=== PATIENT | female | born 1945 | race Caucasian/White ===

== ENCOUNTER 2025-03-05 19:33 | Inpatient (IN) | payer OTHER, MEDICARE, SELFPAY ==
[2025-03-05 20:00] VITALS: BP 164/58; PULSE 84; RESP 17; TEMP 37.1; O2SAT 96
--- NOTE | 2025-03-06 03:35 | PC.ADMIT ---
Raine Abdi is a 79years old female with PMHx of Alzheimer's Dementia who presented from [facility] after presenting there from her memory care unit due to continued aggressive behaviors, and psychiatry was consulted for safety and evaluation. According to report, her behavior in the memory care unit is not sustainable and appears to place her and patients at risk. she is unable to care for self and gets aggressive when staff tries to intervene. In addition, pt has significant aphasia which explains some but not all of her behaviors. pt also recently had UIT that is being treated with antibiotics. 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 pt is alert and oriented to self only, on a 12B. pt was unable to complete the admission process due to cognitive decline and declined to sign XIANG's. pt is pleasant but does have an irritable edge and resistive to care when staff tried to obtain vitals and change hospital gown. This nurse was unable to complete assessment questions due to her confusion. pt with a euthymic affect, thought process is disorganized, likely due to the aphasia. pt ambulates independently with steady gait, pt does not appear to be in any pain or distress. VSS unremarkable. No visible skin issues noticed, med rec completed. pt's belongings inventoried/secured.Hospitalist consult ordered for medical clearance.pt has multiple allergies and is placed on 5mins safety checks.
--- NOTE | 2025-03-06 08:29 | P.CONHOSP_ITS ---
History of Present Illness Data of Consult Service Date: 03/06/25 Primary Care Provider: Kelly Rangel HPI Reason for consult: Admission H&P Pt is a 79-year-old female with a PMH significant for?HLD and dementia with aphasia who is admitted to [facility] for aggressive behaviors in the setting of worsening dementia. Pt was previously at a memory care [place] but had been getting increasingly unable to take care of herself and would become aggressive towards staff when they would try and assist her. Medical consult for admission H&P. ?Pt seen and examined on the unit where she is calm, cooperative, and follows commands. However, pt has significant aphasia and often will not answer appropriately and speaks nonsensically. Pt does not appear in any acute distress and does not appear to have any acute medical complaints, but medical hx and HPI difficult to assess. Review of Systems Review of Systems: Yes Unobtainable due to mental status [facility] Medical History (Updated 03/06/25 @ 09:58 by YVETTE Resendez) Dementia HLD (hyperlipidemia) Social History Patient Tobacco Use Status: Refuse Tobacco use screen Advance Directives: No Advance Directives Information Provided: No Advance Directives on File: No Patient : No Meds Allergies Allergy/AdvReac Type Severity Reaction Status Date / Time Cephalosporins Allergy Intermediate Hives Verified 03/05/25 19:23 aspirin Allergy Unknown Verified 03/05/25 19:23 benzocaine Allergy Unknown Verified 03/05/25 19:23 rosuvastatin Allergy Unknown Verified 03/05/25 19:24 codeine AdvReac Intermediate altered Verified 03/05/25 19:23 Mental Status lactose AdvReac intolerance Verified 03/05/25 19:24 chickpeas Allergy Intermediate Hives Uncoded 03/05/25 19:23 Active Medications: Current Medications Acetaminophen (Acetaminophen 325 Mg Tablet) 650 mg PO Q6H PRN PRN Reason: Headache/Pain, Scale 1-10 Al Hydroxide/Mg Hydroxide (Magnesium Hydrox/Alum Hydrox 30 Ml Oral.Susp) 30 ml PO Q6H PRN PRN Reason: Heartburn/Nausea Atorvastatin Calcium (Atorvastatin Calcium 20 Mg Tablet) 20 mg PO DAILY [facility] Donepezil HCl (Donepezil Hcl 5 Mg Tablet) 5 mg PO BEDTIME [facility] Last Admin: 03/05/25 23:20 Dose: 5 mg Escitalopram Oxalate (Escitalopram Oxalate 10 Mg Tablet) 10 mg PO DAILY [facility] Melatonin (Melatonin 3 Mg Tablet) 3 mg PO BEDTIME [facility] Last Admin: 03/05/25 23:19 Dose: 3 mg Olanzapine (Olanzapine 2.5 Mg Tablet) 2.5 mg PO TID PRN PRN Reason: agitation Polyethylene Glycol (Polyethylene Glycol 3350 17 Gm Powd.Pack) 17 gm PO DAILY PRN PRN Reason: Constipation Quetiapine Fumarate (Quetiapine Fumarate 50 Mg Tablet) 50 mg PO BID [facility] Last Admin: 03/05/25 23:19 Dose: 50 mg Risperidone (Risperidone 0.25 Mg Tablet) 0.25 mg PO DAILY [facility] Trazodone HCl (Trazodone Hcl 25 Mg Halftab) 25 mg PO BEDTIME MRX1 PRN PRN Reason: Insomnia Trazodone HCl (Trazodone Hcl 50 Mg Tablet) 50 mg PO BEDTIME [facility] Vitamin D (Cholecalciferol (Vitamin D3) 25 Mcg Tablet) 1,000 mcg PO DAILY [facility] Home Medications ?Medication ?Instructions ?Recorded ?Confirmed ?Last Taken ?Type Seroquel 50 mg PO BID 03/05/25 Unknown History atorvastatin 20 mg tablet 20 mg PO DAILY 03/05/2502/07 Unknown History cholecalciferol (vitamin D3) 1,000 unit PO DAILY 03/0503/05/25 Unknown History citalopram 20 mg tablet 20 mg PO DAILY 03/05/2502/07 Unknown History donepezil 5 mg PO BEDTIME 03/05/25 Unknown History melatonin 3 mg tablet 3 mg PO QPM 03/05/25 5 Unknown History risperidone 0.25 mg tablet 0.25 mg PO DAILY 03/05/25 0 03/05/25 Unknown History trazodone 50 mg tablet 50 mg PO BEDTIME 03/05/25 Unknown History Colace 100 mg PO BID 03/06/2503/06 Unknown History nitrofurantoin 100 mg PO BID 03/06/2503/06 Unknown History Physical Exam Vital Signs and Narrative: Vital Signs: Last Vital Signs Temp 98.7 F 03/05/25 20:00 Pulse 84 03/05/25 20:00 Resp 17 03/05/25 20:00 BP 164/58 H 03/05/25 20:00 Pulse Ox 96 03/05/25 20:00 O2 Del Method Room Air 03/05/25 20:00 General: AOx1 but not to place, time, or situation. In no acute distress. Elderly, frail Resp: CTA bilaterally CVS: S1, S2, RRR GI: +BS, NT, no distention Skin: Warm, dry Back: kyphosis Neuro: Cranial nerves II-XII grossly intact bilaterally. Motor grossly intact bilaterally Extremities: No edema Psych: Pleasantly confused Assessment and Plan (1) Medical clearance for psychiatric admission: Status: Acute Plan Pt is a 79-year-old female with a PMH significant for?HLD and dementia with aphasia who is [facility] for aggressive behaviors in the se tting of worsening dementia. [facility] but had been getting increasingly unable to take care of herself and would become aggressive towards staff when they would try and assist her. Medical consult for admission H&P. Mood disorder/dementia Plan as per Psychiatry HLD Continue statin Elevated BP Initial BP elevated 164/58 BP at [facility] generally well-controlled Pt not on antihypertensives Monitor for now Thank you for allowing us to participate in the care of this patient. Signing off at this time. Please re-consult if any acute complaints or issues arise.
--- NOTE | 2025-03-06 09:29 | HO.PSYADMNOT ---
HPI Date of Service: 03/06/25 Chief Complaint: Behavioral disturbance, major neurocognitive disor Sources of Information: patient interviewed, chart reviewed and crisis/core team assessment reviewed HPI Subjective Notes: [place] Warning (does not understand) and Section 12B Narrative: Mrs. Abdi is a 79 year-old woman with hx of Major Neurocognitive disorder who sent from memory care unit at [facility] to [facility] due to increase agitation and combative behaviors. Pt apparently entered another peer's room and was not leaving room and then pushed one of the staff and then was sent to ED. In the ED, pt presented with intermittent periods of agitation. She was noted to be oriented to self only and this seems to be her baseline (per family report). Pertinent labs completed in the ED include CBC without leukocytosis, CMP without electrolyte abnormalities, BUN 17, Cr. 0.80. UA with leukocytes, positive for nitrites, no bacteria. On the unit, pt presents as calm. She is not oriented to place, month, year nor situation. When asked if she worked, she reports no, never worked. She also denied having children. She states I was at home. She was walking away from this junior underwriter. 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 He reports she has been at this facility since November. She has been dx with AD for 4 years and was living at home with 24 hr help at the home. 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 no children nor significant other. She does have a brother who is POA. Substance History: none reported Trauma History: none reported Diagnostics Vital Signs (24Hr): Vital Signs - 24 hr 03/05/25 20:00 Temperature 98.7 F Pulse Rate 84 Respiratory Rate 17 Blood Pressure 164/58 H Pulse Oximetry 96 Oxygen Delivery Method Room Air Meds/Allergies Meds Home Medications ?Medication ?Instructions ?Recorded ?Confirmed ?Type Seroquel 50 mg PO BID 03/05/25 03/05/25 History atorvastatin 20 mg tablet 20 mg PO DAILY 03/05/25 03/05/25 History cholecalciferol (vitamin D3) 1,000 unit PO DAILY 03/05/25 03/05/25 History citalopram 20 mg tablet 20 mg PO DAILY 03/05/25 03/05/25 History donepezil 5 mg PO BEDTIME 03/05/25 03/05/25 History melatonin 3 mg tablet 3 mg PO QPM 03/05/25 03/05/25 History risperidone 0.25 mg tablet 0.25 mg PO DAILY 03/05/25 03/05/25 History trazodone 50 mg tablet 50 mg PO BEDTIME 03/05/25 03/05/25 History Colace 100 mg PO BID 03/06/25 03/06/25 History nitrofurantoin 100 mg PO BID 03/06/25 03/06/25 History Allergies Allergies Allergy/AdvReac Type Severity Reaction Status Date / Time Cephalosporins Allergy Intermediate Hives Verified 03/05/25 19:23 aspirin Allergy Unknown Verified 03/05/25 19:23 benzocaine Allergy Unknown Verified 03/05/25 19:23 rosuvastatin Allergy Unknown Verified 03/05/25 19:24 codeine AdvReac Intermediate altered Verified 03/05/25 19:23 Mental Status lactose AdvReac intolerance Verified 03/05/25 19:24 chickpeas Allergy Intermediate Hives Uncoded 03/05/25 19:23 Mental Status Exam Mental Status Exam Narrative: Appearance: wearing hospital gown, fair hygiene, in NAD Behavior: calm, not engaging much in conversation, walking away Psychomotor: no agitation or retardation noted Speech: with expressive aphasia TP: aphasia TC: none in particular Mood: good Affect: congruent SI: no signs HI: no signs VH/AH: no overt signs Delusions: no overt delusional content Insight/judgment: severely impaired x 2. Memory/cog: oriented only to self. severe memory/cog impairments. Assessment & Plan Assessment & Plan (1) Major neurocognitive disorder due to another medical condition with behavioral disturbance: Status: Acute Code(s): F02.818 - Dementia in other diseases classified elsewhere, unspecified severity, with other behavioral disturbance Plan Mr. Abdi is a 79 year-old woman with hx of AD who was sent from memory unit from [facility] to [facility] ED due to pt pushing staff when being redirected out of peer's room. Pertinent labs include CBC without leukocytosis nor anemia, CMP without electrolyte abnormalities. UA with nites and leukocytes but no bacteria. Pt oriented only to self, with severe impairment in memory and ability to retain information along with expressive aphasia. She was started on risperidone at [facility]. It appears she was on seroquel prior to going to the hospital. Will switch to risperidone. Continue aricept. PLAN 1. Admit to S1, on 12b, pending POA invokation. 2. d/c seroquel increase risperidone to 0.5mg po BID. Continue olanzapine 2.5mg po TID prn for agitation. 3. obtain collateral information 4. aftercare planning. Patient educated on: diagnosis (brother, pt does not understand) and medication risk/benefits Reason for continued inpatient stay Substantial Risk for: harm to others and inability to function Statement Statement: I have reviewed the history and physical and performed a pertinent examination on my patient. No changes have occurred unless specified. If the History and Physical was not performed prior to admission, the Hospitalist's service will be consulted for completing the admission physical. Time Spent With Patient Time: Total time managing care of this patient today ____ minutes.
[2025-03-06 20:00] VITALS: RESP 18
[2025-03-06] MEDS: traZODone HCL 25 MG HALFTAB PO (23:28)
--- NOTE | 2025-03-07 01:01 | PC.NURSE ---
Pt declined HS medications.
[2025-03-07 19:18] VITALS: BP 165/74; PULSE 98; RESP 17; TEMP 35.9; O2SAT 95
--- NOTE | 2025-03-07 19:19 | HO.PSYCHPN ---
Subjective Subjective Date of Service: 03/07/25 Reason For Visit: Behavioral disturbance, major neurocognitive disor Subjective Notes: Section 12B Interim History: Pt slept through the night. She walking around the unit. No aggression. She is not oriented to place, month nor situation. speech with aphasia. No agitation towards self or others. Mental Status Exam Mental Status Exam Narrative: Appearance: wearing hospital gown, fair hygiene, in NAD Behavior: calm, not engaging much in conversation, walking away Psychomotor: no agitation or retardation noted Speech: with expressive aphasia TP: aphasia TC: none in particular Mood: good Affect: congruent SI: no signs HI: no signs VH/AH: no overt signs Delusions: no overt delusional content Insight/judgment: severely impaired x 2. Memory/cog: oriented only to self. severe memory/cog impairments. Diagnostics Vital Signs (24Hr): Vital Signs - 24 hr 03/06/25 20:00 Respiratory Rate 18 Medications Medications Current Medications Acetaminophen (Acetaminophen 325 Mg Tablet) 650 mg PO Q6H PRN PRN Reason: Headache/Pain, Scale 1-10 Al Hydroxide/Mg Hydroxide (Magnesium Hydrox/Alum Hydrox 30 Ml Oral.Susp) 30 ml PO Q6H PRN PRN Reason: Heartburn/Nausea Atorvastatin Calcium (Atorvastatin Calcium 20 Mg Tablet) 20 mg PO DAILY [facility] Last Admin: 03/07/25 07:58 Dose: 20 mg Donepezil HCl (Donepezil Hcl 5 Mg Tablet) 5 mg PO BEDTIME [facility] Last Admin: 03/06/25 21:13 Dose: Not Given Escitalopram Oxalate (Escitalopram Oxalate 10 Mg Tablet) 10 mg PO DAILY [facility] Last Admin: 03/07/25 07:58 Dose: 10 mg Melatonin (Melatonin 3 Mg Tablet) 3 mg PO BEDTIME [facility] Last Admin: 03/06/25 21:13 Dose: Not Given Olanzapine (Olanzapine 2.5 Mg Tablet) 2.5 mg PO TID PRN PRN Reason: agitation Polyethylene Glycol (Polyethylene Glycol 3350 17 Gm Powd.Pack) 17 gm PO DAILY PRN PRN Reason: Constipation Risperidone (Risperidone 0.5 Mg Tablet) 0.5 mg PO BID [facility] Trazodone HCl (Trazodone Hcl 25 Mg Halftab) 25 mg PO BEDTIME MRX1 PRN PRN Reason: Insomnia Last Admin: 03/06/25 23:28 Dose: 25 mg Trazodone HCl (Trazodone Hcl 50 Mg Tablet) 50 mg PO BEDTIME [facility] Last Admin: 03/06/25 21:13 Dose: Not Given Vitamin D (Cholecalciferol (Vitamin D3) 25 Mcg Tablet) 25 mcg PO DAILY [facility] Last Admin: 03/07/25 07:59 Dose: 25 mcg Allergies Allergies Allergy/AdvReac Type Severity Reaction Status Date / Time Cephalosporins Allergy Intermediate Hives Verified 03/05/25 19:23 aspirin Allergy Unknown Verified 03/05/25 19:23 benzocaine Allergy Unknown Verified 03/05/25 19:23 rosuvastatin Allergy Unknown Verified 03/05/25 19:24 codeine AdvReac Intermediate altered Verified 03/05/25 19:23 Mental Status lactose AdvReac intolerance Verified 03/05/25 19:24 chickpeas Allergy Intermediate Hives Uncoded 03/05/25 19:23 Assessment & Plan Assessment & Plan (1) Major neurocognitive disorder due to another medical condition with behavioral disturbance: Status: Acute Code(s): F02.818 - Dementia in other diseases classified elsewhere, unspecified severity, with other behavioral disturbance Plan Mr. Abdi is a 79 year-old woman with hx of AD who was sent from memory unit from [place] to [facility] ED due to pt pushing staff when being redirected out of peer's room. Pertinent labs include CBC without leukocytosis nor anemia, CMP without electrolyte abnormalities. UA with nites and leukocytes but no bacteria. Pt oriented only to self, with severe impairment in memory and ability to retain information along with expressive aphasia. She was started on risperidone at [facility]. It appears she was on seroquel prior to going to the hospital. Will switch to risperidone. Continue aricept. PLAN 03/07 continue tx. Reason for continued inpatient stay Substantial Risk for: inability to function Time Spent With Patient Time: Total time managing care of this patient today ____ minutes.
--- NOTE | 2025-03-08 01:19 | P.EN_ITS ---
Event Note Date of Service: 03/08/25 Event Note: this pt was brought to my attention by nursing compounding and finishing supervisor that patient was diagnosed with a urinary tract infection prior to transfer to the S1. Nitrate positive with WBCs and leukocytes. Per documentation from the previous hospital, it states that the patient was put on nitrofurantoin b.i.d. due to previous cultures, but we do not have access to these cultures or the culture for the current urinary tract infection. The patient received 1 dose of nitrofurantoin prior to transfer and has not been taking antibiotics while here. The patient has been having frequent episodes of urinary incontinence. UA/culture ordered to be done as soon as possible. ordered stat labs including CBC, CMP, lactic acid and blood cultures x2 as pt is tachycardic and last temp was 96.7. Per recommendation of Dr Hawkins, start pt on levaquin 750mg Q24H PO. recent EKG with QTC of 454. Per chart review kidney function is normal, baseline labs here have yet to be drawn since arriving to the unit. pt refused labs, combative (baseline). will start levoquin 750mg QD x5 doses per Dr Hawkins. encourage PO fluids. monitor BP closely. at this time pt does not need to be transferred to the floor but will follow. Time Spent With Patient Time: Total time managing care of this patient today ____ minutes.
--- NOTE | 2025-03-08 02:33 | PC.NURSE ---
Patient was diagnosed with UTI at [facility], initiated treatment with Macrobid 100 mg BID, she received her first dose at 0839 on 03/05/25, but it seems like Macrobid treatment was not continued here, hospitalist notified/resumed Macrobid but ordered Labs and EKG to ruled out sepsis, patient refused labs and became combative, hospitalist made aware.
[2025-03-08 06:02] VITALS: TEMP 36.3
--- NOTE | 2025-03-08 06:45 | PC.NURSE ---
Hospitalist changed Macrobid to Levaquin 750 mg daily for 5 days and first dose was administered.
[2025-03-08 10:39] LABS: Appearance Urine Clear; Glucose Urine UA Negative (Negative); PH 6.5 (5.0-9.0); Specific Gravity - Urine 1.015 (1.005-1.025); UMIC TRIGGER UACC YES
[2025-03-08 10:50] LABS: UACC Culture Trigger YES
--- NOTE | 2025-03-08 12:03 | HO.PSYCHPN ---
Subjective Subjective Date of Service: 03/09/25 Reason For Visit: Behavioral disturbance, major neurocognitive disor Interim History: Pt slept through the night. She is oriented only to self. walks around the unit. speech with aphasia. eating well. no overt aggression but can be irritable with direct care. VS stable. Mental Status Exam Mental Status Exam Narrative: Appearance: wearing hospital gown, fair hygiene, in NAD Behavior: calm, not engaging much in conversation, walking away Psychomotor: no agitation or retardation noted Speech: with expressive aphasia TP: aphasia TC: none in particular Mood: good Affect: congruent SI: no signs HI: no signs VH/AH: no overt signs Delusions: no overt delusional content Insight/judgment: severely impaired x 2. Memory/cog: oriented only to self. severe memory/cog impairments. Diagnostics Vital Signs (24Hr): Vital Signs - 24 hr 03/07/25 19:18 03/08/25 06:02 Temperature 96.7 F L 97.3 F Pulse Rate 98 Respiratory Rate 17 Blood Pressure 165/74 H Pulse Oximetry 95 Oxygen Delivery Method Room Air Labs Labs: Laboratory Results - last 48 hr 03/08/25 10:15 Urine Color Yellow Urine Appearance Clear Urine pH 6.5 Ur Specific [place] 1.015 Urine Protein Negative Urine Glucose (UA) Negative Urine Ketones Negative Urine Blood Negative Urine Nitrite Positive H Ur Leukocyte Esterase Trace H Urine RBC 0-2 Urine WBC 0-5 Ur Squamous Epith Cells 0-2 Urine Bacteria 4+ Hyaline Casts 0-2 Medications Medications Current Medications Acetaminophen (Acetaminophen 325 Mg Tablet) 650 mg PO Q6H PRN PRN Reason: Headache/Pain, Scale 1-10 Al Hydroxide/Mg Hydroxide (Magnesium Hydrox/Alum Hydrox 30 Ml Oral.Susp) 30 ml PO Q6H PRN PRN Reason: Heartburn/Nausea Atorvastatin Calcium (Atorvastatin Calcium 20 Mg Tablet) 20 mg PO DAILY [facility] Last Admin: 03/08/25 08:37 Dose: 20 mg Donepezil HCl (Donepezil Hcl 5 Mg Tablet) 5 mg PO BEDTIME [facility] Last Admin: 03/07/25 19:21 Dose: 5 mg Escitalopram Oxalate (Escitalopram Oxalate 10 Mg Tablet) 10 mg PO DAILY [facility] Last Admin: 03/08/25 08:37 Dose: 10 mg Levofloxacin (Levofloxacin 750 Mg Tablet) 750 mg PO Q24H [facility] Stop: 03/12/25 09:01 Melatonin (Melatonin 3 Mg Tablet) 3 mg PO BEDTIME [facility] Last Admin: 03/07/25 19:21 Dose: 3 mg Olanzapine (Olanzapine 2.5 Mg Tablet) 2.5 mg PO TID PRN PRN Reason: agitation Polyethylene Glycol (Polyethylene Glycol 3350 17 Gm Powd.Pack) 17 gm PO DAILY PRN PRN Reason: Constipation Risperidone (Risperidone 0.5 Mg Tablet) 0.5 mg PO BID [facility] Last Admin: 03/08/25 08:37 Dose: 0.5 mg Trazodone HCl (Trazodone Hcl 25 Mg Halftab) 25 mg PO BEDTIME MRX1 PRN PRN Reason: Insomnia Last Admin: 03/06/25 23:28 Dose: 25 mg Trazodone HCl (Trazodone Hcl 50 Mg Tablet) 50 mg PO BEDTIME [facility] Last Admin: 03/07/25 19:21 Dose: 50 mg Vitamin D (Cholecalciferol (Vitamin D3) 25 Mcg Tablet) 25 mcg PO DAILY [facility] Last Admin: 03/08/25 08:37 Dose: 25 mcg Allergies Allergies Allergy/AdvReac Type Severity Reaction Status Date / Time Cephalosporins Allergy Intermediate Hives Verified 03/05/25 19:23 aspirin Allergy Unknown Verified 03/05/25 19:23 benzocaine Allergy Unknown Verified 03/05/25 19:23 rosuvastatin Allergy Unknown Verified 03/05/25 19:24 codeine AdvReac Intermediate altered Verified 03/05/25 19:23 Mental Status lactose AdvReac intolerance Verified 03/05/25 19:24 chickpeas Allergy Intermediate Hives Uncoded 03/05/25 19:23 Assessment & Plan Assessment & Plan (1) Major neurocognitive disorder due to another medical condition with behavioral disturbance: Status: Acute Code(s): F02.818 - Dementia in other diseases classified elsewhere, unspecified severity, with other behavioral disturbance Plan Mr. Abdi is a 79 year-old woman with hx of AD who was sent from memory unit from [place] to [facility] ED due to pt pushing staff when being redirected out of peer's room. Pertinent labs include CBC without leukocytosis nor anemia, CMP without electrolyte abnormalities. UA with nites and leukocytes but no bacteria. Pt oriented only to self, with severe impairment in memory and ability to retain information along with expressive aphasia. She was started on risperidone at [facility]. It appears she was on seroquel prior to going to the hospital. Will switch to risperidone. Continue aricept. PLAN 03/07 continue tx. 03/08 risperidone increase to 0.5mg po BID, seroquel d/c. continue olanzapine prn for agitation. Reason for continued inpatient stay Substantial Risk for: inability to function Time Spent With Patient Time: Total time managing care of this patient today ____ minutes.
[2025-03-08 20:00] VITALS: BP 164/81; PULSE 100; RESP 16; TEMP 35.8; O2SAT 95
--- NOTE | 2025-03-08 22:29 | PC.NURSE ---
Attempted to obtain EKG with no success due to patient inability to stay still.
[2025-03-09 09:15] VITALS: BMI 23.4
--- NOTE | 2025-03-09 18:07 | HO.PSYCHPN ---
Subjective Subjective Date of Service: 03/09/25 Reason For Visit: Behavioral disturbance, major neurocognitive disor Subjective Notes: Conditional Voluntary Healthcare Proxy: Yes Interim History: Pt slept through the night. She is oriented only to self. walks around the unit. speech with aphasia. She had few episodes of irritability and combative behaviors, will increase risperidone to TID-monitor EPS, non currently. eating well. no overt aggression but can be irritable with direct care. VS stable. Review of Systems Review of Systems Yes Unobtainable due to mental status Mental Status Exam Mental Status Exam Narrative: Appearance: wearing hospital gown, fair hygiene, in NAD Behavior: calm, not engaging much in conversation, walking away Psychomotor: no agitation or retardation noted Speech: with expressive aphasia TP: aphasia TC: none in particular Mood: good Affect: congruent SI: no signs HI: no signs VH/AH: no overt signs Delusions: no overt delusional content Insight/judgment: severely impaired x 2. Memory/cog: oriented only to self. severe memory/cog impairments. Diagnostics Vital Signs (24Hr): Vital Signs - 24 hr 03/08/25 20:00 Temperature 96.4 F L Pulse Rate 100 Respiratory Rate 16 Blood Pressure 164/81 H Pulse Oximetry 95 Oxygen Delivery Method Room Air BMI result Body Mass Index 23.4 Labs Labs: Laboratory Results - last 48 hr 03/08/25 10:15 Urine Color Yellow Urine Appearance Clear Urine pH 6.5 Ur Specific [place] 1.015 Urine Protein Negative Urine Glucose (UA) Negative Urine Ketones Negative Urine Blood Negative Urine Nitrite Positive H Ur Leukocyte Esterase Trace H Urine RBC 0-2 Urine WBC 0-5 Ur Squamous Epith Cells 0-2 Urine Bacteria 4+ Hyaline Casts 0-2 Medications Medications Current Medications Acetaminophen (Acetaminophen 325 Mg Tablet) 650 mg PO Q6H PRN PRN Reason: Headache/Pain, Scale 1-10 Al Hydroxide/Mg Hydroxide (Magnesium Hydrox/Alum Hydrox 30 Ml Oral.Susp) 30 ml PO Q6H PRN PRN Reason: Heartburn/Nausea Atorvastatin Calcium (Atorvastatin Calcium 20 Mg Tablet) 20 mg PO DAILY [facility] Last Admin: 03/09/25 10:14 Dose: 20 mg Donepezil HCl (Donepezil Hcl 5 Mg Tablet) 5 mg PO BEDTIME [facility] Last Admin: 03/08/25 19:41 Dose: 5 mg Escitalopram Oxalate (Escitalopram Oxalate 10 Mg Tablet) 10 mg PO DAILY [facility] Last Admin: 03/09/25 10:14 Dose: 10 mg Levofloxacin (Levofloxacin 750 Mg Tablet) 750 mg PO Q24H [facility] Stop: 03/12/25 09:01 Last Admin: 03/09/25 10:14 Dose: 750 mg Melatonin (Melatonin 3 Mg Tablet) 3 mg PO BEDTIME [facility] Last Admin: 03/08/25 19:41 Dose: 3 mg Olanzapine (Olanzapine 2.5 Mg Tablet) 2.5 mg PO TID PRN PRN Reason: agitation Last Admin: 03/09/25 00:51 Dose: 2.5 mg Polyethylene Glycol (Polyethylene Glycol 3350 17 Gm Powd.Pack) 17 gm PO DAILY PRN PRN Reason: Constipation Risperidone (Risperidone 0.5 Mg Tablet) 0.5 mg PO BID [facility] Last Admin: 03/09/25 10:14 Dose: 0.5 mg Trazodone HCl (Trazodone Hcl 25 Mg Halftab) 25 mg PO BEDTIME MRX1 PRN PRN Reason: Insomnia Last Admin: 03/06/25 23:28 Dose: 25 mg Trazodone HCl (Trazodone Hcl 50 Mg Tablet) 50 mg PO BEDTIME [facility] Last Admin: 03/08/25 19:40 Dose: 50 mg Vitamin D (Cholecalciferol (Vitamin D3) 25 Mcg Tablet) 25 mcg PO DAILY [facility] Last Admin: 03/09/25 11:20 Dose: 25 mcg Allergies Allergies Allergy/AdvReac Type Severity Reaction Status Date / Time Cephalosporins Allergy Intermediate Hives Verified 03/05/25 19:23 aspirin Allergy Unknown Verified 03/05/25 19:23 benzocaine Allergy Unknown Verified 03/05/25 19:23 rosuvastatin Allergy Unknown Verified 03/05/25 19:24 codeine AdvReac Intermediate altered Verified 03/05/25 19:23 Mental Status lactose AdvReac intolerance Verified 03/05/25 19:24 chickpeas Allergy Intermediate Hives Uncoded 03/05/25 19:23 Assessment & Plan Assessment & Plan (1) Major neurocognitive disorder due to another medical condition with behavioral disturbance: Status: Acute Code(s): F02.818 - Dementia in other diseases classified elsewhere, unspecified severity, with other behavioral disturbance Plan Mr. Abdi is a 79 year-old woman with hx of AD who was sent from memory unit from [place] to [facility] ED due to pt pushing staff when being redirected out of peer's room. Pertinent labs include CBC without leukocytosis nor anemia, CMP without electrolyte abnormalities. UA with nites and leukocytes but no bacteria. Pt oriented only to self, with severe impairment in memory and ability to retain information along with expressive aphasia. She was started on risperidone at [facility]. It appears she was on seroquel prior to going to the hospital. Will switch to risperidone. Continue aricept. PLAN 03/07 continue tx. 03/08 d.c seroquel, increase risperidone to 0.5mg po BID 03/09 will increase risperidone to TID Reason for continued inpatient stay Substantial Risk for: inability to function Time Spent With Patient Time: Total time managing care of this patient today ____ minutes.
[2025-03-09 20:00] VITALS: BP 178/84; PULSE 99; RESP 20; TEMP 36.6; O2SAT 97
--- NOTE | 2025-03-10 08:46 | HO.PSYCHPN ---
Subjective Subjective Date of Service: 03/10/25 Reason For Visit: Behavioral disturbance, major neurocognitive disor Subjective Notes: Conditional Voluntary Healthcare Proxy: Yes Medical Problems Affecting Mental Status: Yes (severe dementia) Interim History: 79 yo with dementia wandering and confused - o x1 only Medication Compliance: Yes Side effects from medications: No Attending Groups: Intermittent Review of Systems Acute medical concerns: No Medical Review of Systems: unchanged Mental Status Exam Mental Status Exam Narrative: dressed in milvia answers to name, needs redirection wandering, no aggression noted, =- holding pen and crayon - and note pad that says thoughts pt can read this and does to me- not putting anything in to book- walks up to others and talks confusedly Patient Appearance: Appropriate (groomed by staff- with shower and change milvia) Patient Orientation: Person Level of Consciousness: Awake and Alert Patient Behavior: Wandering, Confused and Poor Eye Contact Mood Description: Apathetic Affect Description: Constricted Patient Cognition Impaired: Yes Ability to Follow Directions: Poor Speech Pattern: Rambling Thought Process: Confusion Thought Content: positive for Poverty of Content Abnormal Motor Activity Signs and Symptoms: Restlessness Judgement: Poor Diagnostics Vital Signs (24Hr): Vital Signs - 24 hr 03/09/25 20:00 Temperature 97.8 F Pulse Rate 99 Respiratory Rate 20 Blood Pressure 178/84 H Pulse Oximetry 97 Oxygen Delivery Method Room Air BMI result Body Mass Index 23.4 Labs Labs: Laboratory Results - last 48 hr 03/08/25 10:15 Urine Color Yellow Urine Appearance Clear Urine pH 6.5 Ur Specific [place] 1.015 Urine Protein Negative Urine Glucose (UA) Negative Urine Ketones Negative Urine Blood Negative Urine Nitrite Positive H Ur Leukocyte Esterase Trace H Urine RBC 0-2 Urine WBC 0-5 Ur Squamous Epith Cells 0-2 Urine Bacteria 4+ Hyaline Casts 0-2 Medications Medications Current Medications Acetaminophen (Acetaminophen 325 Mg Tablet) 650 mg PO Q6H PRN PRN Reason: Headache/Pain, Scale 1-10 Al Hydroxide/Mg Hydroxide (Magnesium Hydrox/Alum Hydrox 30 Ml Oral.Susp) 30 ml PO Q6H PRN PRN Reason: Heartburn/Nausea Atorvastatin Calcium (Atorvastatin Calcium 20 Mg Tablet) 20 mg PO DAILY [facility] Last Admin: 03/09/25 10:14 Dose: 20 mg Donepezil HCl (Donepezil Hcl 5 Mg Tablet) 5 mg PO BEDTIME [facility] Last Admin: 03/09/25 20:42 Dose: 5 mg Escitalopram Oxalate (Escitalopram Oxalate 10 Mg Tablet) 10 mg PO DAILY [facility] Last Admin: 03/09/25 10:14 Dose: 10 mg Levofloxacin (Levofloxacin 750 Mg Tablet) 750 mg PO Q24H [facility] Stop: 03/12/25 09:01 Last Admin: 03/09/25 10:14 Dose: 750 mg Melatonin (Melatonin 3 Mg Tablet) 3 mg PO BEDTIME [facility] Last Admin: 03/09/25 20:41 Dose: 3 mg Olanzapine (Olanzapine 2.5 Mg Tablet) 2.5 mg PO TID PRN PRN Reason: agitation Last Admin: 03/09/25 00:51 Dose: 2.5 mg Polyethylene Glycol (Polyethylene Glycol 3350 17 Gm Powd.Pack) 17 gm PO DAILY PRN PRN Reason: Constipation Risperidone (Risperidone 0.5 Mg Tablet) 0.5 mg PO BID [facility] Last Admin: 03/09/25 20:42 Dose: 0.5 mg Trazodone HCl (Trazodone Hcl 25 Mg Halftab) 25 mg PO BEDTIME MRX1 PRN PRN Reason: Insomnia Last Admin: 03/06/25 23:28 Dose: 25 mg Trazodone HCl (Trazodone Hcl 50 Mg Tablet) 50 mg PO BEDTIME [facility] Last Admin: 03/09/25 20:42 Dose: 50 mg Vitamin D (Cholecalciferol (Vitamin D3) 25 Mcg Tablet) 25 mcg PO DAILY [facility] Last Admin: 03/09/25 11:20 Dose: 25 mcg Allergies Allergies Allergy/AdvReac Type Severity Reaction Status Date / Time Cephalosporins Allergy Intermediate Hives Verified 03/05/25 19:23 aspirin Allergy Unknown Verified 03/05/25 19:23 benzocaine Allergy Unknown Verified 03/05/25 19:23 rosuvastatin Allergy Unknown Verified 03/05/25 19:24 codeine AdvReac Intermediate altered Verified 03/05/25 19:23 Mental Status lactose AdvReac intolerance Verified 03/05/25 19:24 chickpeas Allergy Intermediate Hives Uncoded 03/05/25 19:23 Assessment & Plan Assessment & Plan (1) Major neurocognitive disorder due to another medical condition with behavioral disturbance: Status: Acute Code(s): F02.818 - Dementia in other diseases classified elsewhere, unspecified severity, with other behavioral disturbance Plan Mr. Abdi is a 79 year-old woman with hx of AD who was sent from memory unit from [place] to [facility] ED due to pt pushing staff when being redirected out of peer's room. Pertinent labs include CBC without leukocytosis nor anemia, CMP without electrolyte abnormalities. UA with nites and leukocytes but no bacteria. Pt oriented only to self, with severe impairment in memory and ability to retain information along with expressive aphasia. She was started on risperidone at [facility]. It appears she was on seroquel prior to going to the hospital. Will switch to risperidone. Continue aricept. PLAN 03/07 continue tx. 03/10/25 seems to be tolerating risperidone- no aggression- continues to wander Reason for continued inpatient stay Substantial Risk for: inability to function and rapid decompensation Time Spent With Patient Time: Total time managing care of this patient today ____ minutes.
[2025-03-10 09:46] VITALS: BP 141/73; PULSE 103; RESP 18; TEMP 35.8
[2025-03-10 20:00] VITALS: BP 146/68; PULSE 94; RESP 18; TEMP 36.7; O2SAT 96
[2025-03-11 08:30] VITALS: BP 130/60; PULSE 98; RESP 18; TEMP 36.3; O2SAT 98
[2025-03-11 20:00] VITALS: BP 132/62; PULSE 88; RESP 16; TEMP 36.6; O2SAT 96
[2025-03-11] MEDS: traZODone HCL 25 MG HALFTAB PO (22:00)
[2025-03-12 08:00] VITALS: RESP 18
--- NOTE | 2025-03-12 09:15 | HO.PSYCHPN ---
Subjective Subjective Date of Service: 03/12/25 Reason For Visit: Behavioral disturbance, major neurocognitive disor Subjective Notes: Conditional Voluntary Interim History: Pt slept through the night. She is taking medications as prescribed. Not oriented to place, month, situation or year , which is baseline for her. Some mild aggression when direct care is offered. She did let blood work to be completed- CBC, CMP mostly unremarkable. BP has been elevated, continue to monitor. Medication Compliance: Yes Side effects from medications: No Attending Groups: Yes Mental Status Exam Mental Status Exam Narrative: Appearance: wearing hospital gown, fair hygiene, in NAD Behavior: calm, not engaging much in conversation, walking away Psychomotor: no agitation or retardation noted Speech: with expressive aphasia TP: aphasia TC: none in particular Mood: good Affect: congruent SI: no signs HI: no signs VH/AH: no overt signs Delusions: no overt delusional content Insight/judgment: severely impaired x 2. Memory/cog: oriented only to self. severe memory/cog impairments. Diagnostics Vital Signs (24Hr): Vital Signs - 24 hr 03/11/25 20:00 Temperature 97.8 F Pulse Rate 88 Respiratory Rate 16 Blood Pressure 132/62 Pulse Oximetry 96 Oxygen Delivery Method Room Air BMI result Body Mass Index 23.4 Labs 03/12/25 12:50 03/12/25 12:50 Medications Medications Current Medications Acetaminophen (Acetaminophen 325 Mg Tablet) 650 mg PO Q6H PRN PRN Reason: Headache/Pain, Scale 1-10 Last Admin: 03/11/25 21:58 Dose: 650 mg Al Hydroxide/Mg Hydroxide (Magnesium Hydrox/Alum Hydrox 30 Ml Oral.Susp) 30 ml PO Q6H PRN PRN Reason: Heartburn/Nausea Atorvastatin Calcium (Atorvastatin Calcium 20 Mg Tablet) 20 mg PO DAILY [facility] Last Admin: 03/11/25 09:13 Dose: 20 mg Donepezil HCl (Donepezil Hcl 5 Mg Tablet) 5 mg PO BEDTIME [facility] Last Admin: 03/11/25 21:20 Dose: 5 mg Escitalopram Oxalate (Escitalopram Oxalate 10 Mg Tablet) 10 mg PO DAILY [facility] Last Admin: 03/11/25 09:12 Dose: 10 mg Melatonin (Melatonin 3 Mg Tablet) 3 mg PO BEDTIME [facility] Last Admin: 03/11/25 21:20 Dose: 3 mg Olanzapine (Olanzapine 2.5 Mg Tablet) 2.5 mg PO TID PRN PRN Reason: agitation Last Admin: 03/11/25 21:58 Dose: 2.5 mg Polyethylene Glycol (Polyethylene Glycol 3350 17 Gm Powd.Pack) 17 gm PO DAILY PRN PRN Reason: Constipation Risperidone (Risperidone 0.5 Mg Tablet) 0.5 mg PO TID [facility] Last Admin: 03/11/25 21:20 Dose: 0.5 mg Trazodone HCl (Trazodone Hcl 25 Mg Halftab) 25 mg PO BEDTIME MRX1 PRN PRN Reason: Insomnia Last Admin: 03/11/25 22:00 Dose: 25 mg Trazodone HCl (Trazodone Hcl 50 Mg Tablet) 50 mg PO BEDTIME [facility] Last Admin: 03/11/25 21:00 Dose: 50 mg Vitamin D (Cholecalciferol (Vitamin D3) 25 Mcg Tablet) 25 mcg PO DAILY [facility] Last Admin: 03/11/25 09:12 Dose: 25 mcg Allergies Allergies Allergy/AdvReac Type Severity Reaction Status Date / Time Cephalosporins Allergy Intermediate Hives Verified 03/05/25 19:23 aspirin Allergy Unknown Verified 03/05/25 19:23 benzocaine Allergy Unknown Verified 03/05/25 19:23 rosuvastatin Allergy Unknown Verified 03/05/25 19:24 codeine AdvReac Intermediate altered Verified 03/05/25 19:23 Mental Status lactose AdvReac intolerance Verified 03/05/25 19:24 chickpeas Allergy Intermediate Hives Uncoded 03/05/25 19:23 Assessment & Plan Assessment & Plan (1) Major neurocognitive disorder due to another medical condition with behavioral disturbance: Status: Acute Code(s): F02.818 - Dementia in other diseases classified elsewhere, unspecified severity, with other behavioral disturbance Plan Mr. Abdi is a 79 year-old woman with hx of AD who was sent from memory unit from [place] to [facility] ED due to pt pushing staff when being redirected out of peer's room. Pertinent labs include CBC without leukocytosis nor anemia, CMP without electrolyte abnormalities. UA with nites and leukocytes but no bacteria. Pt oriented only to self, with severe impairment in memory and ability to retain information along with expressive aphasia. She was started on risperidone at [facility]. It appears she was on seroquel prior to going to the hospital. Will switch to risperidone. Continue aricept. PLAN 03/07 continue tx. 03/10/25 seems to be tolerating risperidone- no aggression- continues to wander 03/12 continue tx. no signs of EPS. Reason for continued inpatient stay Substantial Risk for: inability to function Time Spent With Patient Time: Total time managing care of this patient today ____ minutes.
[2025-03-12 12:58] LABS: MANUAL DIFF FLAG NO
[2025-03-12 13:05] LABS: Hematocrit 35.3 % (37.0-47.0); Hemoglobin 11.8 g/dl (12.0-16.0); Imm Gran Abs Auto 0.06 X10*3/uL (0.00-0.03); Imm Gran Pct Auto 0.6 % (0.0-0.4); Lymphocytes Absolute Auto 1.6 X10*3/uL (1.2-4.9); Mean Corpuscular HGB Conc 33.4 g/dl (31.0-35.0); Mean Corpuscular Hemoglobin 28.5 pg (27.0-33.0); Mean Corpuscular Volume 85.3 fL (80.0-98.0); NRBC Abs Auto 0.000 X10*3/uL (0.0-0.012); NRBC Pct Auto 0.0 /100WBC (0.0-0.2); Platelet Count 297 X10*3/uL (160-400); Red Blood Count 4.14 X10*6/uL (4.20-5.50); White Blood Count 10.7 X10*3/uL (4.8-10.8)
[2025-03-12 13:17] LABS: Hemoglobin A1C 152.3882 umol/L; Total Hemoglobin (HGBA1C) 3136.0063 umol/L
[2025-03-12 13:25] LABS: Alanine Aminotransferase 18 U/L (0-31); Albumin Level 3.8 g/dL (3.5-5.0); Alkaline Phosphatase 104 U/L (39-117); Anion Gap 14 (12-20); Aspartate Amino Transferase 29 U/L (5-31); Blood Urea Nitrogen 18 mg/dL (9-16); Calcium 9.0 mg/dL (8.4-10.2); Carbon Dioxide 24 mmol/L (22-29); Chloride 108 mmol/L (96-108); Cholesterol 163 mg/dL (<200); Creatinine Clr Calc Pharmacy 41.7; Estimated Glomerular Filt Rate > 60; HDL Cholesterol 46 mg/dL (>40); Potassium 4.1 mmol/L (3.3-5.1); Sodium 142 mmol/L (135-145); Total Protein 6.6 g/dL (6.5-8.0); Triglycerides 238 mg/dL (<150)
[2025-03-12 20:00] VITALS: RESP 20; O2SAT 96
[2025-03-13 08:14] VITALS: BP 174/72; PULSE 92; RESP 20; TEMP 36.3; O2SAT 93
--- NOTE | 2025-03-13 17:09 | HO.PSYCHPN ---
Subjective Subjective Date of Service: 03/13/25 Reason For Visit: Behavioral disturbance, major neurocognitive disor Subjective Notes: Conditional Voluntary Healthcare Proxy: Yes Interim History: Pt slept through the night. She is not oriented to place, month, year nor situation. She also has aphasia. walking around the unit. Some resistance to care when direct care offered but able to be redirected. No need for restraints. She has used PRN mostly at time to sleep. confused as to where the bathroom is and has had BM close to bed thinking she is in the bathroom. VS stable. She is eating well. not aggressive to other residents. Medication Compliance: Yes Mental Status Exam Mental Status Exam Narrative: Appearance: wearing hospital gown, fair hygiene, in NAD Behavior: calm, not engaging much in conversation, walking away Psychomotor: no agitation or retardation noted Speech: with expressive aphasia TP: aphasia TC: none in particular Mood: good Affect: congruent SI: no signs HI: no signs VH/AH: no overt signs Delusions: no overt delusional content Insight/judgment: severely impaired x 2. Memory/cog: oriented only to self. severe memory/cog impairments. Diagnostics Vital Signs (24Hr): Vital Signs - 24 hr 03/12/25 20:00 03/13/25 08:14 Temperature 97.4 F Pulse Rate 92 Respiratory Rate 20 20 Blood Pressure 174/72 H Pulse Oximetry 96 93 Oxygen Delivery Method Room Air Room Air BMI result Body Mass Index 23.4 Labs 03/12/25 12:50 03/12/25 12:50 Labs: Laboratory Results - last 48 hr 03/12/25 12:50 WBC 10.7 RBC 4.14 L Hgb 11.8 L Hct 35.3 L MCV 85.3 MCH 28.5 MCHC 33.4 RDW 13.4 Plt Count 297 MPV 9.5 Immature Gran % (Auto) 0.6 H Neut % (Auto) 74.6 H Lymph % (Auto) 14.9 L S[place] % (Auto) 7.1 Eos % (Auto) 2.1 Baso % (Auto) 0.7 Lymph # (Auto) 1.6 [place] # (Auto) 0.8 Eos # (Auto) 0.2 Baso # (Auto) 0.1 Abs Immat Gran (auto) 0.06 H Absolute Neuts (auto) 8.0 Absolute Nucleated RBC 0.000 Nucleated RBC % (auto) 0.0 Sodium 142 Potassium 4.1 Chloride 108 Carbon Dioxide 24 Anion Gap 14 BUN 18 H Creatinine 0.88 Estim Creat Clear Calc 41.7 Estimated GFR > 60 Random Glucose 137 H Estimat Average Glucose 143 Hemoglobin A1c % 6.6 H Lactic Acid 1.9 Calcium 9.0 Total Bilirubin 0.2 AST 29 ALT 18 Alkaline Phosphatase 104 Total Protein 6.6 Albumin 3.8 Triglycerides 238 H Cholesterol 163 LDL Cholesterol, Calc 70 HDL Cholesterol 46 TSH 1.67 Medications Medications Current Medications Acetaminophen (Acetaminophen 325 Mg Tablet) 650 mg PO Q6H PRN PRN Reason: Headache/Pain, Scale 1-10 Last Admin: 03/12/25 20:34 Dose: 650 mg Al Hydroxide/Mg Hydroxide (Magnesium Hydrox/Alum Hydrox 30 Ml Oral.Susp) 30 ml PO Q6H PRN PRN Reason: Heartburn/Nausea Atorvastatin Calcium (Atorvastatin Calcium 20 Mg Tablet) 20 mg PO DAILY [facility] Last Admin: 03/13/25 08:29 Dose: 20 mg Donepezil HCl (Donepezil Hcl 5 Mg Tablet) 5 mg PO BEDTIME [facility] Last Admin: 03/12/25 20:34 Dose: 5 mg Escitalopram Oxalate (Escitalopram Oxalate 10 Mg Tablet) 10 mg PO DAILY [facility] Last Admin: 03/13/25 08:28 Dose: 10 mg Melatonin (Melatonin 3 Mg Tablet) 3 mg PO BEDTIME [facility] Last Admin: 03/12/25 20:34 Dose: 3 mg Olanzapine (Olanzapine 2.5 Mg Tablet) 2.5 mg PO TID PRN PRN Reason: agitation Last Admin: 03/12/25 20:34 Dose: 2.5 mg Polyethylene Glycol (Polyethylene Glycol 3350 17 Gm Powd.Pack) 17 gm PO DAILY PRN PRN Reason: Constipation Risperidone (Risperidone 0.5 Mg Tablet) 0.5 mg PO TID [facility] Last Admin: 03/13/25 15:03 Dose: 0.5 mg Trazodone HCl (Trazodone Hcl 25 Mg Halftab) 25 mg PO BEDTIME MRX1 PRN PRN Reason: Insomnia Last Admin: 03/11/25 22:00 Dose: 25 mg Trazodone HCl (Trazodone Hcl 50 Mg Tablet) 50 mg PO BEDTIME [facility] Last Admin: 03/12/25 20:34 Dose: 50 mg Vitamin D (Cholecalciferol (Vitamin D3) 25 Mcg Tablet) 25 mcg PO DAILY [facility] Last Admin: 03/13/25 08:28 Dose: 25 mcg Allergies Allergies Allergy/AdvReac Type Severity Reaction Status Date / Time Cephalosporins Allergy Intermediate Hives Verified 03/05/25 19:23 aspirin Allergy Unknown Verified 03/05/25 19:23 benzocaine Allergy Unknown Verified 03/05/25 19:23 rosuvastatin Allergy Unknown Verified 03/05/25 19:24 codeine AdvReac Intermediate altered Verified 03/05/25 19:23 Mental Status lactose AdvReac intolerance Verified 03/05/25 19:24 chickpeas Allergy Intermediate Hives Uncoded 03/05/25 19:23 Assessment & Plan Assessment & Plan (1) Major neurocognitive disorder due to another medical condition with behavioral disturbance: Status: Acute Code(s): F02.818 - Dementia in other diseases classified elsewhere, unspecified severity, with other behavioral disturbance Plan Mr. Abdi is a 79 year-old woman with hx of AD who was sent from memory unit from [place] to [facility] ED due to pt pushing staff when being redirected out of peer's room. Pertinent labs include CBC without leukocytosis nor anemia, CMP without electrolyte abnormalities. UA with nites and leukocytes but no bacteria. Pt oriented only to self, with severe impairment in memory and ability to retain information along with expressive aphasia. She was started on risperidone at [facility]. It appears she was on seroquel prior to going to the hospital. Will switch to risperidone. Continue aricept. PLAN 03/07 continue tx. 03/10/25 seems to be tolerating risperidone- no aggression- continues to wander 03/12 continue tx. no signs of EPS. 03/13 continue tx. Reason for continued inpatient stay Substantial Risk for: inability to function Time Spent With Patient Time: Total time managing care of this patient today ____ minutes.
[2025-03-13 20:00] VITALS: RESP 16
[2025-03-14 08:00] VITALS: BP 129/71; PULSE 86; RESP 14; O2SAT 97
[2025-03-14 20:00] VITALS: BP 151/69; PULSE 97; RESP 16; TEMP 36.7; O2SAT 96
--- NOTE | 2025-03-14 21:33 | P.PNPSI_ITS ---
Subjective Subjective Date of Service: 03/14/25 Reason For Visit: Behavioral disturbance, major neurocognitive disor Subjective Notes: Conditional Voluntary Interim History: Pt slept through the night. She is not oriented to place, month, year not situation. She has been walking around, thinks she is working. Does have aphasia but few sentences are clear although mostly non sensical conversation. Periods of agitation with direct care. VS stable. Diagnostics Vital Signs (24Hr): Vital Signs - 24 hr 03/14/25 08:00 Pulse Rate 86 Respiratory Rate 14 Blood Pressure 129/71 Pulse Oximetry 97 Oxygen Delivery Method Room Air BMI result Body Mass Index 23.4 Labs 03/12/25 12:50 03/12/25 12:50 Medications Medications Current Medications Acetaminophen (Acetaminophen 325 Mg Tablet) 650 mg PO Q6H PRN PRN Reason: Headache/Pain, Scale 1-10 Last Admin: 03/13/25 21:52 Dose: 650 mg Al Hydroxide/Mg Hydroxide (Magnesium Hydrox/Alum Hydrox 30 Ml Oral.Susp) 30 ml PO Q6H PRN PRN Reason: Heartburn/Nausea Atorvastatin Calcium (Atorvastatin Calcium 20 Mg Tablet) 20 mg PO DAILY [facility] Last Admin: 03/14/25 09:35 Dose: 20 mg Donepezil HCl (Donepezil Hcl 5 Mg Tablet) 5 mg PO BEDTIME [facility] Last Admin: 03/14/25 20:35 Dose: 5 mg Escitalopram Oxalate (Escitalopram Oxalate 10 Mg Tablet) 10 mg PO DAILY [facility] Last Admin: 03/14/25 09:35 Dose: 10 mg Melatonin (Melatonin 3 Mg Tablet) 3 mg PO BEDTIME [facility] Last Admin: 03/14/25 20:35 Dose: 3 mg Olanzapine (Olanzapine 2.5 Mg Tablet) 2.5 mg PO TID PRN PRN Reason: agitation Last Admin: 03/13/25 21:52 Dose: 2.5 mg Polyethylene Glycol (Polyethylene Glycol 3350 17 Gm Powd.Pack) 17 gm PO DAILY PRN PRN Reason: Constipation Risperidone (Risperidone 0.5 Mg Tablet) 0.5 mg PO TID [facility] Last Admin: 03/14/25 20:35 Dose: 0.5 mg Trazodone HCl (Trazodone Hcl 25 Mg Halftab) 25 mg PO BEDTIME MRX1 PRN PRN Reason: Insomnia Last Admin: 03/11/25 22:00 Dose: 25 mg Trazodone HCl (Trazodone Hcl 50 Mg Tablet) 50 mg PO BEDTIME [facility] Last Admin: 03/14/25 20:35 Dose: 50 mg Vitamin D (Cholecalciferol (Vitamin D3) 25 Mcg Tablet) 25 mcg PO DAILY [facility] Last Admin: 03/14/25 09:35 Dose: 25 mcg Allergies Allergies Allergy/AdvReac Type Severity Reaction Status Date / Time Cephalosporins Allergy Intermediate Hives Verified 03/05/25 19:23 aspirin Allergy Unknown Verified 03/05/25 19:23 benzocaine Allergy Unknown Verified 03/05/25 19:23 rosuvastatin Allergy Unknown Verified 03/05/25 19:24 codeine AdvReac Intermediate altered Verified 03/05/25 19:23 Mental Status lactose AdvReac intolerance Verified 03/05/25 19:24 chickpeas Allergy Intermediate Hives Uncoded 03/05/25 19:23 Assessment & Plan Assessment & Plan (1) Major neurocognitive disorder due to another medical condition with behavioral disturbance: Status: Acute Code(s): F02.818 - Dementia in other diseases classified elsewhere, unspecified severity, with other behavioral disturbance Plan Mr. Abdi is a 79 year-old woman with hx of AD who was sent from memory unit from [place] to [facility] ED due to pt pushing staff when being redirected out of peer's room. Pertinent labs include CBC without leukocytosis nor anemia, CMP without electrolyte abnormalities. UA with nites and leukocytes but no bacteria. Pt oriented only to self, with severe impairment in memory and ability to retain information along with expressive aphasia. She was started on risperidone at [facility]. It appears she was on seroquel prior to going to the hospital. Will switch to risperidone. Continue aricept. PLAN 03/07 continue tx. 03/10/25 seems to be tolerating risperidone- no aggression- continues to wander 03/12 continue tx. no signs of EPS. 03/13 continue tx. 03/14 continue tx. Reason for continued inpatient stay Substantial Risk for: inability to function Time Spent With Patient Time: Total time managing care of this patient today ____ minutes.
[2025-03-15 08:00] VITALS: BP 130/65; PULSE 87; RESP 12; TEMP 36.8; O2SAT 96
[2025-03-15 15:35] VITALS: BMI 25.7
[2025-03-15 20:00] VITALS: BP 145/70; PULSE 95; RESP 16; TEMP 36.4; O2SAT 94
--- NOTE | 2025-03-15 20:58 | HO.PSYCHPN ---
Subjective Subjective Date of Service: 03/15/25 Reason For Visit: Behavioral disturbance, major neurocognitive disor Subjective Notes: Conditional Voluntary Healthcare Proxy: Yes Interim History: Pt slept through the night. She is not oriented to place, month, year not situation. She has a bright affect, thinks she is at work, social with peers although speech with aphasia. She has been calm, attended groups (not fully participating but calm and sitting down). VS stable. Medication Compliance: Yes Review of Systems Review of Systems Yes Unobtainable due to mental status Mental Status Exam Mental Status Exam Narrative: Appearance: wearing hospital gown, fair hygiene, in NAD Behavior: calm, not engaging much in conversation, walking away Psychomotor: no agitation or retardation noted Speech: with expressive aphasia TP: aphasia TC: none in particular Mood: good Affect: congruent SI: no signs HI: no signs VH/AH: no overt signs Delusions: no overt delusional content Insight/judgment: severely impaired x 2. Memory/cog: oriented only to self. severe memory/cog impairments. Diagnostics Vital Signs (24Hr): Vital Signs - 24 hr 03/15/25 08:00 Temperature 98.3 F Pulse Rate 87 Respiratory Rate 12 Blood Pressure 130/65 Pulse Oximetry 96 Oxygen Delivery Method Room Air BMI result Body Mass Index 25.7 Labs 03/12/25 12:50 03/12/25 12:50 Medications Medications Current Medications Acetaminophen (Acetaminophen 325 Mg Tablet) 650 mg PO Q6H PRN PRN Reason: Headache/Pain, Scale 1-10 Last Admin: 03/13/25 21:52 Dose: 650 mg Al Hydroxide/Mg Hydroxide (Magnesium Hydrox/Alum Hydrox 30 Ml Oral.Susp) 30 ml PO Q6H PRN PRN Reason: Heartburn/Nausea Atorvastatin Calcium (Atorvastatin Calcium 20 Mg Tablet) 20 mg PO DAILY [facility] Last Admin: 03/15/25 09:48 Dose: 20 mg Donepezil HCl (Donepezil Hcl 5 Mg Tablet) 5 mg PO BEDTIME [facility] Last Admin: 03/15/25 20:43 Dose: 5 mg Escitalopram Oxalate (Escitalopram Oxalate 10 Mg Tablet) 10 mg PO DAILY [facility] Last Admin: 03/15/25 09:48 Dose: 10 mg Melatonin (Melatonin 3 Mg Tablet) 3 mg PO BEDTIME [facility] Last Admin: 03/15/25 20:43 Dose: 3 mg Olanzapine (Olanzapine 2.5 Mg Tablet) 2.5 mg PO TID PRN PRN Reason: agitation Last Admin: 03/13/25 21:52 Dose: 2.5 mg Polyethylene Glycol (Polyethylene Glycol 3350 17 Gm Powd.Pack) 17 gm PO DAILY PRN PRN Reason: Constipation Risperidone (Risperidone 0.5 Mg Tablet) 0.5 mg PO TID [facility] Last Admin: 03/15/25 20:43 Dose: 0.5 mg Trazodone HCl (Trazodone Hcl 25 Mg Halftab) 25 mg PO BEDTIME MRX1 PRN PRN Reason: Insomnia Last Admin: 03/11/25 22:00 Dose: 25 mg Trazodone HCl (Trazodone Hcl 50 Mg Tablet) 50 mg PO BEDTIME [facility] Last Admin: 03/15/25 20:43 Dose: 50 mg Vitamin D (Cholecalciferol (Vitamin D3) 25 Mcg Tablet) 25 mcg PO DAILY [facility] Last Admin: 03/15/25 09:48 Dose: 25 mcg Allergies Allergies Allergy/AdvReac Type Severity Reaction Status Date / Time Cephalosporins Allergy Intermediate Hives Verified 03/05/25 19:23 aspirin Allergy Unknown Verified 03/05/25 19:23 benzocaine Allergy Unknown Verified 03/05/25 19:23 rosuvastatin Allergy Unknown Verified 03/05/25 19:24 codeine AdvReac Intermediate altered Verified 03/05/25 19:23 Mental Status chickpeas Allergy Intermediate Hives Uncoded 03/05/25 19:23 Assessment & Plan Assessment & Plan (1) Major neurocognitive disorder due to another medical condition with behavioral disturbance: Status: Acute Code(s): F02.818 - Dementia in other diseases classified elsewhere, unspecified severity, with other behavioral disturbance Plan Mr. Abdi is a 79 year-old woman with hx of AD who was sent from memory unit from [place] to [facility] ED due to pt pushing staff when being redirected out of peer's room. Pertinent labs include CBC without leukocytosis nor anemia, CMP without electrolyte abnormalities. UA with nites and leukocytes but no bacteria. Pt oriented only to self, with severe impairment in memory and ability to retain information along with expressive aphasia. She was started on risperidone at [facility]. It appears she was on seroquel prior to going to the hospital. Will switch to risperidone. Continue aricept. PLAN 03/07 continue tx. 03/10/25 seems to be tolerating risperidone- no aggression- continues to wander 03/12 continue tx. no signs of EPS. 03/13 continue tx. 03/14 continue tx. 03/15 continue tx. no signs of EPS Reason for continued inpatient stay Substantial Risk for: inability to function Time Spent With Patient Time: Total time managing care of this patient today ____ minutes.
--- NOTE | 2025-03-16 05:58 | PC.NURSE ---
Pt put herself on the floor trying to grab a paper that fell off her pocket, no injury reported, declined VS.
[2025-03-16 08:21] VITALS: BP 124/72; PULSE 95; RESP 1; TEMP 36.1; O2SAT 99
--- NOTE | 2025-03-16 16:31 | HO.PSYCHPN ---
Subjective Subjective Date of Service: 03/16/25 Reason For Visit: Behavioral disturbance, major neurocognitive disor Subjective Notes: Conditional Voluntary Healthcare Proxy: Yes Interim History: Pt sleeping through the night. She is visible on the unit, grabbing papers, thinks she may be at work. No aggression, some resistance to care when direct care provided but staff is able to complete ADLs for pt. Smiling, eating well. VS stable. Diagnostics Vital Signs (24Hr): Vital Signs - 24 hr 03/15/25 20:00 03/16/25 08:21 Temperature 97.5 F 97.0 F Pulse Rate 95 95 Respiratory Rate 16 1 L Blood Pressure 145/70 H 124/72 Pulse Oximetry 94 99 Oxygen Delivery Method Room Air Room Air BMI result Body Mass Index 25.7 Labs 03/12/25 12:50 03/12/25 12:50 Medications Medications Current Medications Acetaminophen (Acetaminophen 325 Mg Tablet) 650 mg PO Q6H PRN PRN Reason: Headache/Pain, Scale 1-10 Last Admin: 03/13/25 21:52 Dose: 650 mg Al Hydroxide/Mg Hydroxide (Magnesium Hydrox/Alum Hydrox 30 Ml Oral.Susp) 30 ml PO Q6H PRN PRN Reason: Heartburn/Nausea Atorvastatin Calcium (Atorvastatin Calcium 20 Mg Tablet) 20 mg PO DAILY [facility] Last Admin: 03/16/25 08:24 Dose: 20 mg Donepezil HCl (Donepezil Hcl 5 Mg Tablet) 5 mg PO BEDTIME [facility] Last Admin: 03/15/25 20:43 Dose: 5 mg Escitalopram Oxalate (Escitalopram Oxalate 10 Mg Tablet) 10 mg PO DAILY [facility] Last Admin: 03/16/25 08:24 Dose: 10 mg Melatonin (Melatonin 3 Mg Tablet) 3 mg PO BEDTIME [facility] Last Admin: 03/15/25 20:43 Dose: 3 mg Olanzapine (Olanzapine 2.5 Mg Tablet) 2.5 mg PO TID PRN PRN Reason: agitation Last Admin: 03/13/25 21:52 Dose: 2.5 mg Polyethylene Glycol (Polyethylene Glycol 3350 17 Gm Powd.Pack) 17 gm PO DAILY PRN PRN Reason: Constipation Risperidone (Risperidone 0.5 Mg Tablet) 0.5 mg PO TID [facility] Last Admin: 03/16/25 14:03 Dose: 0.5 mg Trazodone HCl (Trazodone Hcl 25 Mg Halftab) 25 mg PO BEDTIME MRX1 PRN PRN Reason: Insomnia Last Admin: 03/11/25 22:00 Dose: 25 mg Trazodone HCl (Trazodone Hcl 50 Mg Tablet) 50 mg PO BEDTIME [facility] Last Admin: 03/15/25 20:43 Dose: 50 mg Vitamin D (Cholecalciferol (Vitamin D3) 25 Mcg Tablet) 25 mcg PO DAILY [facility] Last Admin: 03/16/25 08:24 Dose: 25 mcg Allergies Allergies Allergy/AdvReac Type Severity Reaction Status Date / Time Cephalosporins Allergy Intermediate Hives Verified 03/05/25 19:23 aspirin Allergy Unknown Verified 03/05/25 19:23 benzocaine Allergy Unknown Verified 03/05/25 19:23 rosuvastatin Allergy Unknown Verified 03/05/25 19:24 codeine AdvReac Intermediate altered Verified 03/05/25 19:23 Mental Status chickpeas Allergy Intermediate Hives Uncoded 03/05/25 19:23 Assessment & Plan Assessment & Plan (1) Major neurocognitive disorder due to another medical condition with behavioral disturbance: Status: Acute Code(s): F02.818 - Dementia in other diseases classified elsewhere, unspecified severity, with other behavioral disturbance Plan Mr. Abdi is a 79 year-old woman with hx of AD who was sent from memory unit from [place] to [facility] ED due to pt pushing staff when being redirected out of peer's room. Pertinent labs include CBC without leukocytosis nor anemia, CMP without electrolyte abnormalities. UA with nites and leukocytes but no bacteria. Pt oriented only to self, with severe impairment in memory and ability to retain information along with expressive aphasia. She was started on risperidone at [facility]. It appears she was on seroquel prior to going to the hospital. Will switch to risperidone. Continue aricept. PLAN 03/07 continue tx. 03/10/25 seems to be tolerating risperidone- no aggression- continues to wander 03/12 continue tx. no signs of EPS. 03/13 continue tx. 03/14 continue tx. 03/15 continue tx. no signs of EPS 03/16 continue tx. Reason for continued inpatient stay Substantial Risk for: inability to function Time Spent With Patient Time: Total time managing care of this patient today ____ minutes.
[2025-03-16 20:00] VITALS: BP 134/78; PULSE 74; RESP 16; TEMP 36.6; O2SAT 95
[2025-03-17 08:57] VITALS: TEMP 36.7
--- NOTE | 2025-03-17 12:45 | HO.PSYCHPN ---
Subjective Subjective Date of Service: 03/17/25 Reason For Visit: Behavioral disturbance, major neurocognitive disor Interim History: Patient is pleasant. Remains confused. Disoriented to place and time. Sleep is good. Tolerating medications well. No behavioral outbursts. Mostly cooperative and redirectable with care. No aggression noted. Review of Systems Review of Systems Yes Unobtainable due to mental status Mental Status Exam Mental Status Exam Narrative: Appearance: wearing hospital gown, fair hygiene, in NAD Behavior: calm, not engaging much in conversation, walking away Psychomotor: no agitation or retardation noted Speech: with expressive aphasia TP: aphasia TC: none in particular Mood: good Affect: congruent SI: no signs HI: no signs VH/AH: no overt signs Delusions: no overt delusional content Insight/judgment: severely impaired x 2. Memory/cog: oriented only to self. severe memory/cog impairments. Patient Appearance: Appropriate (groomed by staff- with shower and change milvia) Patient Orientation: Person Level of Consciousness: Awake and Alert Patient Behavior: Wandering, Confused and Poor Eye Contact Mood Description: Apathetic Affect Description: Constricted Patient Cognition Impaired: Yes Ability to Follow Directions: Poor Speech Pattern: Rambling Diagnostics Vital Signs (24Hr): Vital Signs - 24 hr 03/16/25 20:00 03/17/25 08:57 Temperature 97.9 F 98.1 F Pulse Rate 74 Respiratory Rate 16 Blood Pressure 134/78 Pulse Oximetry 95 Oxygen Delivery Method Room Air Room Air BMI result Body Mass Index 25.7 Labs 03/12/25 12:50 03/12/25 12:50 Medications Medications Current Medications Acetaminophen (Acetaminophen 325 Mg Tablet) 650 mg PO Q6H PRN PRN Reason: Headache/Pain, Scale 1-10 Last Admin: 03/13/25 21:52 Dose: 650 mg Al Hydroxide/Mg Hydroxide (Magnesium Hydrox/Alum Hydrox 30 Ml Oral.Susp) 30 ml PO Q6H PRN PRN Reason: Heartburn/Nausea Atorvastatin Calcium (Atorvastatin Calcium 20 Mg Tablet) 20 mg PO DAILY [facility] Last Admin: 03/17/25 09:01 Dose: 20 mg Donepezil HCl (Donepezil Hcl 5 Mg Tablet) 5 mg PO BEDTIME [facility] Last Admin: 03/16/25 21:19 Dose: 5 mg Escitalopram Oxalate (Escitalopram Oxalate 10 Mg Tablet) 10 mg PO DAILY [facility] Last Admin: 03/17/25 09:01 Dose: 10 mg Melatonin (Melatonin 3 Mg Tablet) 3 mg PO BEDTIME [facility] Last Admin: 03/16/25 21:19 Dose: 3 mg Olanzapine (Olanzapine 2.5 Mg Tablet) 2.5 mg PO TID PRN PRN Reason: agitation Last Admin: 03/13/25 21:52 Dose: 2.5 mg Polyethylene Glycol (Polyethylene Glycol 3350 17 Gm Powd.Pack) 17 gm PO DAILY PRN PRN Reason: Constipation Risperidone (Risperidone 0.5 Mg Tablet) 0.5 mg PO TID [facility] Last Admin: 03/17/25 09:01 Dose: 0.5 mg Trazodone HCl (Trazodone Hcl 25 Mg Halftab) 25 mg PO BEDTIME MRX1 PRN PRN Reason: Insomnia Last Admin: 03/11/25 22:00 Dose: 25 mg Trazodone HCl (Trazodone Hcl 50 Mg Tablet) 50 mg PO BEDTIME [facility] Last Admin: 03/16/25 21:19 Dose: 50 mg Vitamin D (Cholecalciferol (Vitamin D3) 25 Mcg Tablet) 25 mcg PO DAILY [facility] Last Admin: 03/17/25 09:01 Dose: 25 mcg Allergies Allergies Allergy/AdvReac Type Severity Reaction Status Date / Time Cephalosporins Allergy Intermediate Hives Verified 03/05/25 19:23 aspirin Allergy Unknown Verified 03/05/25 19:23 benzocaine Allergy Unknown Verified 03/05/25 19:23 rosuvastatin Allergy Unknown Verified 03/05/25 19:24 codeine AdvReac Intermediate altered Verified 03/05/25 19:23 Mental Status chickpeas Allergy Intermediate Hives Uncoded 03/05/25 19:23 Assessment & Plan Assessment & Plan (1) Major neurocognitive disorder due to another medical condition with behavioral disturbance: Status: Acute Code(s): F02.818 - Dementia in other diseases classified elsewhere, unspecified severity, with other behavioral disturbance Plan Mr. Abdi is a 79 year-old woman with hx of AD who was sent from memory unit from [place] to [facility] ED due to pt pushing staff when being redirected out of peer's room. Pertinent labs include CBC without leukocytosis nor anemia, CMP without electrolyte abnormalities. UA with nites and leukocytes but no bacteria. Pt oriented only to self, with severe impairment in memory and ability to retain information along with expressive aphasia. She was started on risperidone at [facility]. It appears she was on seroquel prior to going to the hospital. Will switch to risperidone. Continue aricept. PLAN 03/07 continue tx. 03/10/25 seems to be tolerating risperidone- no aggression- continues to wander 03/12 continue tx. no signs of EPS. 03/13 continue tx. 03/14 continue tx. 03/15 continue tx. no signs of EPS 03/16 continue tx. 03/17: Continue current management and treatment plan. Reason for continued inpatient stay Substantial Risk for: inability to function and rapid decompensation Time Spent With Patient Time: Total time managing care of this patient today ____ minutes.
[2025-03-17 20:00] VITALS: BP 126/60; PULSE 93; RESP 16; TEMP 36.4; O2SAT 95
[2025-03-18 09:03] VITALS: BP 122/58; PULSE 88; RESP 18; TEMP 36.3; O2SAT 94
--- NOTE | 2025-03-18 09:24 | P.PNPSI_ITS ---
Subjective Subjective Date of Service: 03/18/25 Reason For Visit: Behavioral disturbance, major neurocognitive disor Interim History: Patient is pleasant. Remains confused. Disoriented to place and time. Wanders the unit. Can be intrusive but redirectable. Sleep is good. Tolerating medications well. No behavioral outbursts. No aggression noted. Review of Systems Review of Systems Yes Unobtainable due to mental status Mental Status Exam Mental Status Exam Narrative: Appearance: wearing hospital gown, fair hygiene, in NAD Behavior: calm, not engaging much in conversation, walking away Psychomotor: no agitation or retardation noted Speech: with expressive aphasia TP: aphasia TC: none in particular Mood: good Affect: congruent SI: no signs HI: no signs VH/AH: no overt signs Delusions: no overt delusional content Insight/judgment: severely impaired x 2. Memory/cog: oriented only to self. severe memory/cog impairments. Patient Appearance: Appropriate (groomed by staff- with shower and change milvia) Patient Orientation: Person Level of Consciousness: Awake and Alert Patient Behavior: Wandering, Confused and Poor Eye Contact Mood Description: Apathetic Affect Description: Constricted Patient Cognition Impaired: Yes Ability to Follow Directions: Poor Speech Pattern: Rambling Diagnostics Vital Signs (24Hr): Vital Signs - 24 hr 03/17/25 20:00 03/18/25 09:03 Temperature 97.5 F 97.3 F Pulse Rate 93 88 Respiratory Rate 16 18 Blood Pressure 126/60 122/58 L Pulse Oximetry 95 94 Oxygen Delivery Method Room Air Room Air BMI result Body Mass Index 25.7 Labs 03/12/25 12:50 03/12/25 12:50 Medications Medications Current Medications Acetaminophen (Acetaminophen 325 Mg Tablet) 650 mg PO Q6H PRN PRN Reason: Headache/Pain, Scale 1-10 Last Admin: 03/13/25 21:52 Dose: 650 mg Al Hydroxide/Mg Hydroxide (Magnesium Hydrox/Alum Hydrox 30 Ml Oral.Susp) 30 ml PO Q6H PRN PRN Reason: Heartburn/Nausea Atorvastatin Calcium (Atorvastatin Calcium 20 Mg Tablet) 20 mg PO DAILY [facility] Last Admin: 03/17/25 09:01 Dose: 20 mg Donepezil HCl (Donepezil Hcl 5 Mg Tablet) 5 mg PO BEDTIME [facility] Last Admin: 03/17/25 20:54 Dose: 5 mg Escitalopram Oxalate (Escitalopram Oxalate 10 Mg Tablet) 10 mg PO DAILY [facility] Last Admin: 03/17/25 09:01 Dose: 10 mg Melatonin (Melatonin 3 Mg Tablet) 3 mg PO BEDTIME [facility] Last Admin: 03/17/25 20:54 Dose: 3 mg Olanzapine (Olanzapine 2.5 Mg Tablet) 2.5 mg PO TID PRN PRN Reason: agitation Last Admin: 03/13/25 21:52 Dose: 2.5 mg Polyethylene Glycol (Polyethylene Glycol 3350 17 Gm Powd.Pack) 17 gm PO DAILY PRN PRN Reason: Constipation Risperidone (Risperidone 0.5 Mg Tablet) 0.5 mg PO TID [facility] Last Admin: 03/17/25 20:54 Dose: 0.5 mg Trazodone HCl (Trazodone Hcl 25 Mg Halftab) 25 mg PO BEDTIME MRX1 PRN PRN Reason: Insomnia Last Admin: 03/11/25 22:00 Dose: 25 mg Trazodone HCl (Trazodone Hcl 50 Mg Tablet) 50 mg PO BEDTIME [facility] Last Admin: 03/17/25 20:54 Dose: 50 mg Vitamin D (Cholecalciferol (Vitamin D3) 25 Mcg Tablet) 25 mcg PO DAILY [facility] Last Admin: 03/17/25 09:01 Dose: 25 mcg Allergies Allergies Allergy/AdvReac Type Severity Reaction Status Date / Time Cephalosporins Allergy Intermediate Hives Verified 03/05/25 19:23 aspirin Allergy Unknown Verified 03/05/25 19:23 benzocaine Allergy Unknown Verified 03/05/25 19:23 rosuvastatin Allergy Unknown Verified 03/05/25 19:24 codeine AdvReac Intermediate altered Verified 03/05/25 19:23 Mental Status chickpeas Allergy Intermediate Hives Uncoded 03/05/25 19:23 Assessment & Plan Assessment & Plan (1) Major neurocognitive disorder due to another medical condition with behavioral disturbance: Status: Acute Code(s): F02.818 - Dementia in other diseases classified elsewhere, unspecified severity, with other behavioral disturbance Plan Mr. Abdi is a 79 year-old woman with hx of AD who was sent from memory unit from [place] to [facility] ED due to pt pushing staff when being redirected out of peer's room. Pertinent labs include CBC without leukocytosis nor anemia, CMP without electrolyte abnormalities. UA with nites and leukocytes but no bacteria. Pt oriented only to self, with severe impairment in memory and ability to retain information along with expressive aphasia. She was started on risperidone at [facility]. It appears she was on seroquel prior to going to the hospital. Will switch to risperidone. Continue aricept. PLAN 03/07 continue tx. 03/10/25 seems to be tolerating risperidone- no aggression- continues to wander 03/12 continue tx. no signs of EPS. 03/13 continue tx. 03/14 continue tx. 03/15 continue tx. no signs of EPS 03/16 continue tx. 03/17: Continue current management and treatment plan. 03/18: continue current management and treatment plan. Reason for continued inpatient stay Substantial Risk for: inability to function and rapid decompensation Time Spent With Patient Time: Total time managing care of this patient today ____ minutes.
[2025-03-18 19:44] VITALS: BP 144/74; PULSE 104; RESP 20; TEMP 35.9; O2SAT 96
--- NOTE | 2025-03-19 08:54 | P.PNPSI_ITS ---
Subjective Subjective Date of Service: 03/19/25 Reason For Visit: Behavioral disturbance, major neurocognitive disor Subjective Notes: Conditional Voluntary Healthcare Proxy: Yes Interim History: Pt slept through the night. She has been visible on the unit, she is social with peers, although not oriented to place, month year nor situation. She can be more combative with direct care. Overall calmer and smiling. VS stable. Medication Compliance: Yes Review of Systems Review of Systems Yes Unobtainable due to mental status Mental Status Exam Mental Status Exam Narrative: Appearance: wearing hospital gown, fair hygiene, in NAD Behavior: calm, not engaging much in conversation, walking away Psychomotor: no agitation or retardation noted Speech: with expressive aphasia TP: aphasia TC: none in particular Mood: good Affect: congruent SI: no signs HI: no signs VH/AH: no overt signs Delusions: no overt delusional content Insight/judgment: severely impaired x 2. Memory/cog: oriented only to self. severe memory/cog impairments. Diagnostics Vital Signs (24Hr): Vital Signs - 24 hr 03/18/25 09:03 03/18/25 19:44 Temperature 97.3 F 96.6 F L Pulse Rate 88 104 H Respiratory Rate 18 20 Blood Pressure 122/58 L 144/74 H Pulse Oximetry 94 96 Oxygen Delivery Method Room Air Room Air BMI result Body Mass Index 25.7 Labs 03/12/25 12:50 03/12/25 12:50 Medications Medications Current Medications Acetaminophen (Acetaminophen 325 Mg Tablet) 650 mg PO Q6H PRN PRN Reason: Headache/Pain, Scale 1-10 Last Admin: 03/13/25 21:52 Dose: 650 mg Al Hydroxide/Mg Hydroxide (Magnesium Hydrox/Alum Hydrox 30 Ml Oral.Susp) 30 ml PO Q6H PRN PRN Reason: Heartburn/Nausea Atorvastatin Calcium (Atorvastatin Calcium 20 Mg Tablet) 20 mg PO DAILY [facility] Last Admin: 03/19/25 08:33 Dose: 20 mg Donepezil HCl (Donepezil Hcl 5 Mg Tablet) 5 mg PO BEDTIME [facility] Last Admin: 03/18/25 20:19 Dose: 5 mg Escitalopram Oxalate (Escitalopram Oxalate 10 Mg Tablet) 10 mg PO DAILY [facility] Last Admin: 03/19/25 08:32 Dose: 10 mg Melatonin (Melatonin 3 Mg Tablet) 3 mg PO BEDTIME [facility] Last Admin: 03/18/25 20:19 Dose: 3 mg Olanzapine (Olanzapine 2.5 Mg Tablet) 2.5 mg PO TID PRN PRN Reason: agitation Last Admin: 03/13/25 21:52 Dose: 2.5 mg Polyethylene Glycol (Polyethylene Glycol 3350 17 Gm Powd.Pack) 17 gm PO DAILY PRN PRN Reason: Constipation Risperidone (Risperidone 0.5 Mg Tablet) 0.5 mg PO TID NIRMAL Last Admin: 03/19/25 08:33 Dose: 0.5 mg Trazodone HCl (Trazodone Hcl 25 Mg Halftab) 25 mg PO BEDTIME MRX1 PRN PRN Reason: Insomnia Last Admin: 03/11/25 22:00 Dose: 25 mg Trazodone HCl (Trazodone Hcl 50 Mg Tablet) 50 mg PO BEDTIME [facility]MAL Last Admin: 03/18/25 20:19 Dose: 50 mg Vitamin D (Cholecalciferol (Vitamin D3) 25 Mcg Tablet) 25 mcg PO DAILY [facility] Last Admin: 03/19/25 08:32 Dose: 25 mcg Allergies Allergies Allergy/AdvReac Type Severity Reaction Status Date / Time Cephalosporins Allergy Intermediate Hives Verified 03/05/25 19:23 aspirin Allergy Unknown Verified 03/05/25 19:23 benzocaine Allergy Unknown Verified 03/05/25 19:23 rosuvastatin Allergy Unknown Verified 03/05/25 19:24 codeine AdvReac Intermediate altered Verified 03/05/25 19:23 Mental Status chickpeas Allergy Intermediate Hives Uncoded 03/05/25 19:23 Assessment & Plan Assessment & Plan (1) Major neurocognitive disorder due to another medical condition with behavioral disturbance: Status: Acute Code(s): F02.818 - Dementia in other diseases classified elsewhere, unspecified severity, with other behavioral disturbance Plan Mr. Abdi is a 79 year-old woman with hx of AD who was sent from memory unit from [place] to [facility] ED due to pt pushing staff when being redirected out of peer's room. Pertinent labs include CBC without leukocytosis nor anemia, CMP without electrolyte abnormalities. UA with nites and leukocytes but no bacteria. Pt oriented only to self, with severe impairment in memory and ability to retain information along with expressive aphasia. She was started on risperidone at [facility]. It appears she was on seroquel prior to going to the hospital. Will switch to risperidone. Continue aricept. PLAN 03/07 continue tx. 03/10/25 seems to be tolerating risperidone- no aggression- continues to wander 03/12 continue tx. no signs of EPS. 03/13 continue tx. 03/14 continue tx. 03/15 continue tx. no signs of EPS 03/16 continue tx. 03/17: Continue current management and treatment plan. 03/18: continue current management and treatment plan. 03/19 continue tx. Reason for continued inpatient stay Substantial Risk for: inability to function Time Spent With Patient Time: Total time managing care of this patient today ____ minutes.
[2025-03-19 09:30] VITALS: BP 144/61; PULSE 92; RESP 18; TEMP 36.4; O2SAT 95
[2025-03-19 20:00] VITALS: BP 137/63; PULSE 100; RESP 16; TEMP 36.3; O2SAT 93
[2025-03-20 08:15] VITALS: BP 139/91; PULSE 92; RESP 16; TEMP 35.7; O2SAT 94
[2025-03-20 20:00] VITALS: BP 157/78; PULSE 92; RESP 18; TEMP 36.4; O2SAT 96
--- NOTE | 2025-03-20 23:10 | P.PNPSI_ITS ---
Subjective Subjective Date of Service: 03/21/25 Reason For Visit: Behavioral disturbance, major neurocognitive disor Subjective Notes: Conditional Voluntary Healthcare Proxy: Yes Interim History: Pt slept through the night. She has been visible on the unit, she is social with peers, periods of irritability mood lability doing ok with risperadol Medication Compliance: Yes Mental Status Exam Mental Status Exam Narrative: Appearance: wearing hospital gown, fair hygiene, in NAD Behavior: calm, periods of irritability Psychomotor: some agitation or retardation noted Speech: with expressive aphasia TP: aphasia TC: none in particular Mood: ok Affect: congruent SI: no signs HI: no signs VH/AH: no overt signs Delusions: no overt delusional content Insight/judgment: severely impaired x 2. Memory/cog: oriented only to self. severe memory/cog impairments. Diagnostics Vital Signs (24Hr): Vital Signs - 24 hr 03/20/25 08:15 03/20/25 20:00 Temperature 96.3 F L 97.5 F Pulse Rate 92 92 Respiratory Rate 16 18 Blood Pressure 139/91 H 157/78 H Pulse Oximetry 94 96 Oxygen Delivery Method Room Air Room Air BMI result Body Mass Index 25.7 Labs 03/12/25 12:50 03/12/25 12:50 Medications Medications Current Medications Acetaminophen (Acetaminophen 325 Mg Tablet) 650 mg PO Q6H PRN PRN Reason: Headache/Pain, Scale 1-10 Last Admin: 03/13/25 21:52 Dose: 650 mg Al Hydroxide/Mg Hydroxide (Magnesium Hydrox/Alum Hydrox 30 Ml Oral.Susp) 30 ml PO Q6H PRN PRN Reason: Heartburn/Nausea Atorvastatin Calcium (Atorvastatin Calcium 20 Mg Tablet) 20 mg PO DAILY [facility] Last Admin: 03/20/25 08:24 Dose: 20 mg Donepezil HCl (Donepezil Hcl 5 Mg Tablet) 5 mg PO BEDTIME NIRMAL Last Admin: 03/20/25 20:52 Dose: 5 mg Escitalopram Oxalate (Escitalopram Oxalate 10 Mg Tablet) 10 mg PO DAILY [facility] Last Admin: 03/20/25 08:24 Dose: 10 mg Melatonin (Melatonin 3 Mg Tablet) 3 mg PO BEDTIME [facility] Last Admin: 03/20/25 20:52 Dose: 3 mg Olanzapine (Olanzapine 2.5 Mg Tablet) 2.5 mg PO TID PRN PRN Reason: agitation Last Admin: 03/20/25 20:52 Dose: 2.5 mg Polyethylene Glycol (Polyethylene Glycol 3350 17 Gm Powd.Pack) 17 gm PO DAILY PRN PRN Reason: Constipation Risperidone (Risperidone 0.5 Mg Tablet) 0.5 mg PO TID [facility] Last Admin: 03/20/25 20:52 Dose: 0.5 mg Trazodone HCl (Trazodone Hcl 25 Mg Halftab) 25 mg PO BEDTIME MRX1 PRN PRN Reason: Insomnia Last Admin: 03/11/25 22:00 Dose: 25 mg Trazodone HCl (Trazodone Hcl 50 Mg Tablet) 50 mg PO BEDTIME NIRMAL Last Admin: 03/20/25 20:51 Dose: 50 mg Vitamin D (Cholecalciferol (Vitamin D3) 25 Mcg Tablet) 25 mcg PO DAILY [facility] Last Admin: 03/20/25 08:24 Dose: 25 mcg Allergies Allergies Allergy/AdvReac Type Severity Reaction Status Date / Time Cephalosporins Allergy Intermediate Hives Verified 03/05/25 19:23 aspirin Allergy Unknown Verified 03/05/25 19:23 benzocaine Allergy Unknown Verified 03/05/25 19:23 rosuvastatin Allergy Unknown Verified 03/05/25 19:24 codeine AdvReac Intermediate altered Verified 03/05/25 19:23 Mental Status chickpeas Allergy Intermediate Hives Uncoded 03/05/25 19:23 Assessment & Plan Assessment & Plan (1) Major neurocognitive disorder due to another medical condition with behavioral disturbance: Status: Acute Code(s): F02.818 - Dementia in other diseases classified elsewhere, unspecified severity, with other behavioral disturbance Plan Mr. Abdi is a 79 year-old woman with hx of AD who was sent from memory unit from [place] to [facility] ED due to pt pushing staff when being redirected out of peer's room. Pertinent labs include CBC without leukocytosis nor anemia, CMP without electrolyte abnormalities. UA with nites and leukocytes but no bacteria. Pt oriented only to self, with severe impairment in memory and ability to retain information along with expressive aphasia. She was started on risperidone at [facility]. It appears she was on seroquel prior to going to the hospital. Will switch to risperidone. Continue aricept. PLAN 03/07 continue tx. 03/10/25 seems to be tolerating risperidone- no aggression- continues to wander 03/12 continue tx. no signs of EPS. 03/13 continue tx. 03/14 continue tx. 03/15 continue tx. no signs of EPS 03/16 continue tx. 03/17: Continue current management and treatment plan. 03/18: continue current management and treatment plan. 03/19 continue tx. 03/20/25 accepted [facility] risperadol Reason for continued inpatient stay Substantial Risk for: rapid decompensation Time Spent With Patient Time: Total time managing care of this patient today ____ minutes.
[2025-03-21 08:00] VITALS: BP 139/66; PULSE 95; RESP 14; TEMP 36.4
--- NOTE | 2025-03-21 09:01 | HO.PSYCHPN ---
Subjective Subjective Date of Service: 03/21/25 Reason For Visit: Behavioral disturbance, major neurocognitive disor Subjective Notes: Conditional Voluntary Healthcare Proxy: Yes Interim History: Pt case reviewed tx planning chart reviewed pt seen Pt slept through the night. She has been visible on the unit, she is social with peers, periods of irritability mood lability oriented to name. Tolerating risperadol Medication Compliance: Yes Mental Status Exam Mental Status Exam Narrative: Appearance: wearing hospital gown, fair hygiene, in NAD Behavior: calm, periods of irritability Psychomotor: some agitation or retardation noted Speech: with expressive aphasia TP: aphasia TC: none in particular Mood: ok mild dysphoria Affect: congruent constricted SI: no signs HI: no signs VH/AH: no overt signs Delusions: no overt delusional content Insight/judgment: severely impaired Memory/cog: oriented only to self. severe memory/cog impairments. Diagnostics Vital Signs (24Hr): Vital Signs - 24 hr 03/20/25 20:00 Temperature 97.5 F Pulse Rate 92 Respiratory Rate 18 Blood Pressure 157/78 H Pulse Oximetry 96 Oxygen Delivery Method Room Air BMI result Body Mass Index 25.7 Labs 03/12/25 12:50 03/12/25 12:50 Medications Medications Current Medications Acetaminophen (Acetaminophen 325 Mg Tablet) 650 mg PO Q6H PRN PRN Reason: Headache/Pain, Scale 1-10 Last Admin: 03/13/25 21:52 Dose: 650 mg Al Hydroxide/Mg Hydroxide (Magnesium Hydrox/Alum Hydrox 30 Ml Oral.Susp) 30 ml PO Q6H PRN PRN Reason: Heartburn/Nausea Atorvastatin Calcium (Atorvastatin Calcium 20 Mg Tablet) 20 mg PO DAILY [facility] Last Admin: 03/21/25 08:36 Dose: 20 mg Donepezil HCl (Donepezil Hcl 5 Mg Tablet) 5 mg PO BEDTIME [facility]MAL Last Admin: 03/20/25 20:52 Dose: 5 mg Escitalopram Oxalate (Escitalopram Oxalate 10 Mg Tablet) 10 mg PO DAILY [facility] Last Admin: 03/21/25 08:36 Dose: 10 mg Melatonin (Melatonin 3 Mg Tablet) 3 mg PO BEDTIME [facility]MAL Last Admin: 03/20/25 20:52 Dose: 3 mg Olanzapine (Olanzapine 2.5 Mg Tablet) 2.5 mg PO TID PRN PRN Reason: agitation Last Admin: 03/20/25 20:52 Dose: 2.5 mg Polyethylene Glycol (Polyethylene Glycol 3350 17 Gm Powd.Pack) 17 gm PO DAILY PRN PRN Reason: Constipation Risperidone (Risperidone 0.5 Mg Tablet) 0.5 mg PO TID [facility] Last Admin: 03/21/25 08:36 Dose: 0.5 mg Trazodone HCl (Trazodone Hcl 25 Mg Halftab) 25 mg PO BEDTIME MRX1 PRN PRN Reason: Insomnia Last Admin: 03/11/25 22:00 Dose: 25 mg Trazodone HCl (Trazodone Hcl 50 Mg Tablet) 50 mg PO BEDTIME [facility] Last Admin: 03/20/25 20:51 Dose: 50 mg Vitamin D (Cholecalciferol (Vitamin D3) 25 Mcg Tablet) 25 mcg PO DAILY [facility] Last Admin: 03/21/25 08:36 Dose: 25 mcg Allergies Allergies Allergy/AdvReac Type Severity Reaction Status Date / Time Cephalosporins Allergy Intermediate Hives Verified 03/05/25 19:23 aspirin Allergy Unknown Verified 03/05/25 19:23 benzocaine Allergy Unknown Verified 03/05/25 19:23 rosuvastatin Allergy Unknown Verified 03/05/25 19:24 codeine AdvReac Intermediate altered Verified 03/05/25 19:23 Mental Status chickpeas Allergy Intermediate Hives Uncoded 03/05/25 19:23 Assessment & Plan Assessment & Plan (1) Major neurocognitive disorder due to another medical condition with behavioral disturbance: Status: Acute Code(s): F02.818 - Dementia in other diseases classified elsewhere, unspecified severity, with other behavioral disturbance Plan Mr. Abdi is a 79 year-old woman with hx of AD who was sent from memory unit from [place] to [facility] ED due to pt pushing staff when being redirected out of peer's room. Pertinent labs include CBC without leukocytosis nor anemia, CMP without electrolyte abnormalities. UA with nites and leukocytes but no bacteria. Pt oriented only to self, with severe impairment in memory and ability to retain information along with expressive aphasia. She was started on risperidone at [facility]. It appears she was on seroquel prior to going to the hospital. Will switch to risperidone. Continue aricept. PLAN 03/07 continue tx. 03/10/25 seems to be tolerating risperidone- no aggression- continues to wander 03/12 continue tx. no signs of EPS. 03/13 continue tx. 03/14 continue tx. 03/15 continue tx. no signs of EPS 03/16 continue tx. 03/17: Continue current management and treatment plan. 03/18: continue current management and treatment plan. 03/19 continue tx. 03/20/25 accepted by [facility] cont risperadol 03/21/25 referred to [facility]t will return back tom Informed Consent: does not understand Reason for continued inpatient stay Substantial Risk for: inability to function and med/psych decompensation Time Spent With Patient Time: Total time managing care of this patient today ____ minutes.
[2025-03-21 10:21] LABS: IDNOW Serial# 55D5AD1C; Strep A Nucleic Acid Negative (Negative)
[2025-03-21 10:52] LABS: Resp Syncy Virus RNA Qual PCR NEGATIVE (Negative); SARS COV2 PCR INHOUSE NEGATIVE (Negative)
[2025-03-21 20:00] VITALS: RESP 16; TEMP 36.3; O2SAT 97
--- NOTE | 2025-03-21 22:19 | HO.PSYCHPN ---
Subjective Subjective Reason For Visit: Behavioral disturbance, major neurocognitive disor Diagnostics Vital Signs (24Hr): Vital Signs - 24 hr 03/21/25 08:00 Temperature 97.5 F Pulse Rate 95 Respiratory Rate 14 Blood Pressure 139/66 BMI result Body Mass Index 25.7 Labs 03/12/25 12:50 03/12/25 12:50 Labs: Laboratory Results - last 48 hr 03/21/25 09:56 Influenza Type A (PCR) NEGATIVE Influenza Type B (PCR) NEGATIVE RSV RNA Qual (PCR) NEGATIVE SARS-CoV-2 RNA (RT-PCR) NEGATIVE S. pyogenes GrpA NETTIE Negative Medications Medications Current Medications Acetaminophen (Acetaminophen 325 Mg Tablet) 650 mg PO Q6H PRN PRN Reason: Headache/Pain, Scale 1-10 Last Admin: 03/21/25 20:17 Dose: 650 mg Al Hydroxide/Mg Hydroxide (Magnesium Hydrox/Alum Hydrox 30 Ml Oral.Susp) 30 ml PO Q6H PRN PRN Reason: Heartburn/Nausea Atorvastatin Calcium (Atorvastatin Calcium 20 Mg Tablet) 20 mg PO DAILY [facility] Last Admin: 03/21/25 08:36 Dose: 20 mg Donepezil HCl (Donepezil Hcl 5 Mg Tablet) 5 mg PO BEDTIME NIRMAL Last Admin: 03/21/25 20:17 Dose: 5 mg Escitalopram Oxalate (Escitalopram Oxalate 10 Mg Tablet) 10 mg PO DAILY [facility] Last Admin: 03/21/25 08:36 Dose: 10 mg Melatonin (Melatonin 3 Mg Tablet) 3 mg PO BEDTIME [facility] Last Admin: 03/21/25 20:17 Dose: 3 mg Olanzapine (Olanzapine 2.5 Mg Tablet) 2.5 mg PO TID PRN PRN Reason: agitation Last Admin: 03/20/25 20:52 Dose: 2.5 mg Polyethylene Glycol (Polyethylene Glycol 3350 17 Gm Powd.Pack) 17 gm PO DAILY PRN PRN Reason: Constipation Risperidone (Risperidone 0.5 Mg Tablet) 0.5 mg PO TID [facility] Last Admin: 03/21/25 20:17 Dose: 0.5 mg Trazodone HCl (Trazodone Hcl 25 Mg Halftab) 25 mg PO BEDTIME MRX1 PRN PRN Reason: Insomnia Last Admin: 03/11/25 22:00 Dose: 25 mg Trazodone HCl (Trazodone Hcl 50 Mg Tablet) 50 mg PO BEDTIME [facility]MAL Last Admin: 03/21/25 20:17 Dose: 50 mg Vitamin D (Cholecalciferol (Vitamin D3) 25 Mcg Tablet) 25 mcg PO DAILY [facility] Last Admin: 03/21/25 08:36 Dose: 25 mcg Allergies Allergies Allergy/AdvReac Type Severity Reaction Status Date / Time Cephalosporins Allergy Intermediate Hives Verified 03/05/25 19:23 aspirin Allergy Unknown Verified 03/05/25 19:23 benzocaine Allergy Unknown Verified 03/05/25 19:23 rosuvastatin Allergy Unknown Verified 03/05/25 19:24 codeine AdvReac Intermediate altered Verified 03/05/25 19:23 Mental Status chickpeas Allergy Intermediate Hives Uncoded 03/05/25 19:23 Assessment & Plan Assessment & Plan (1) Major neurocognitive disorder due to another medical condition with behavioral disturbance: Status: Acute Code(s): F02.818 - Dementia in other diseases classified elsewhere, unspecified severity, with other behavioral disturbance Plan Mr. Abdi is a 79 year-old woman with hx of AD who was sent from memory unit from [place] to [facility] ED due to pt pushing staff when being redirected out of peer's room. Pertinent labs include CBC without leukocytosis nor anemia, CMP without electrolyte abnormalities. UA with nites and leukocytes but no bacteria. Pt oriented only to self, with severe impairment in memory and ability to retain information along with expressive aphasia. She was started on risperidone at [facility]. It appears she was on seroquel prior to going to the hospital. Will switch to risperidone. Continue aricept. PLAN 03/07 continue tx. 03/10/25 seems to be tolerating risperidone- no aggression- continues to wander 03/12 continue tx. no signs of EPS. 03/13 continue tx. 03/14 continue tx. 03/15 continue tx. no signs of EPS 03/16 continue tx. 03/17: Continue current management and treatment plan. 03/18: continue current management and treatment plan. 03/19 continue tx. 03/20/25 accepted by [facility] cont risperadol 03/21/25 referred to [facility] will return back tomm Time Spent With Patient Time: Total time managing care of this patient today ____ minutes.
[2025-03-22 08:00] VITALS: BP 143/85; PULSE 77; RESP 16; TEMP 36.2; O2SAT 96
--- NOTE | 2025-03-22 10:54 | P.DS_ITS ---
DS: Providers Provider Date of Service: 03/22/25 Date of admission: 03/05/25 19:33 Date of discharge: 03/22/25 Primary care physician: Nonstaff Physician Admitting clinician: Taryn Arshad Consults: 03/05/25 20:39 Consult to Hospitalist Routine Comment: Consulting Provider: [facility] Hospitalists Reason For Exam: new external admit- H&P 03/05/25 21:55 Consult to Hospitalist Routine Comment: Consulting Provider: [facility] Hospitalists Reason For Exam: admission physical Attending physician on discharge: Chapin Jacobsen Discharging clinician: Chapin Jacobsen DS: Diagnosis Discharge Diagnosis (1) Major neurocognitive disorder due to another medical condition with behavioral disturbance: Status: Acute DS: Medications Discharge Medications Home Medications: Previous Rx's ?Medication ?Instructions ?Recorded atorvastatin 20 mg tablet 20 mg PO DAILY 30 days #30 t abs 03/21/25 cholecalciferol (vitamin D3) 25 25 mcg PO DAILY 30 day s #30 tabs 03/21/25 mcg (1,000 unit) tablet citalopram 20 mg tablet 20 mg PO DAILY 30 days #30 t abs 03/21/25 docusate sodium 100 mg capsule 100 mg PO BID 30 days # 60 caps 03/21/25 (Colace) donepezil 5 mg PO BEDTIME 30 days #30 tabs 03/21/25 donepezil 5 mg tablet 5 mg PO BEDTIME 30 days #30 tabs 03/21/25 melatonin 3 mg tablet 3 mg PO QPM 30 days #30 tabs 03/21/25 risperidone 0.5 mg tablet 0.5 mg PO TID 30 days #90 ta bs 03/21/25 trazodone 50 mg tablet 50 mg PO BEDTIME 30 days #30 tabs 03/21/25 Mental Status Exam Mental Status Exam Narrative: Appearance: wearing hospital gown, fair hygiene, pacing perplexed Behavior: calm, periods of irritability Psychomotor: some agitation or retardation noted Speech: with expressive aphasia TP: TC: none in particular Mood: Some dysphoria and anxiety Affect: congruent constricted SI: no signs HI: no signs VH/AH: no overt signs Delusions: no overt delusional content Insight/judgment: severely impaired Memory/cog: oriented only to self. severe memory/cog impairments. Data Data Completed and Pending Completed studies during hospitalization [Text1]: 03/21/25 09:56 Influenza Type A (PCR) NEGATIVE Influenza Type B (PCR) NEGATIVE RSV RNA Qual (PCR) NEGATIVE SARS-CoV-2 RNA (RT-PCR) NEGATIVE S. pyogenes GrpA NETTIE Negative 03/12/25 12:50 Blood - Venous Blood Culture - Final No growth after 5 days. 03/12/25 12:50 Blood - Venous Blood Culture - Final No growth after 5 days. 03/08/25 Unknown Urine clean catch - Clean Catch Midstream Urine Culture - Final DS: Summary Hospital Course Hospital Course: Signed Patient: Raine Abdi MR#: [id number] : 1945 Acct:[id number] Age/Sex: 79 / F Loc: [facility] 186-[address]: Chapin Jacobsen MD cc: Chapin Jacobsen MD; Taryn Arshad [employer] MA[employer]GER~ HPI Date of Service: 03/06/25 Chief Complaint: Behavioral disturbance, major neurocognitive disor Sources of Information: patient interviewed, chart reviewed and crisis/core team assessment reviewed HPI Subjective Notes: [place] Warning (does not understand) and Section 12B Narrative: Mrs. Abdi is a 79 year-old woman with hx of Major Neurocognitive disorder who sent from memory care unit at [facility] due to increase agitation and combative behaviors. Pt apparently entered another peer's room and was not leaving room and then pushed one of the staff and then was sent to ED. In the ED, pt presented with intermittent periods of agitation. She was noted to be oriented to self only and this seems to be her baseline (per family report). Pertinent labs completed in the ED include CBC without leukocytosis, CMP without electrolyte abnormalities, BUN 17, Cr. 0.80. UA with leukocytes, positive for nitrites, no bacteria. On the unit, pt presents as calm. She is not oriented to place, month, year nor situation. When asked if she worked, she reports no, never worked. She also denied having children. She states I was at home. She was walking away from this journalists and other writers. 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 He reports she has been at this facility since November. She has been dx with AD for 4 years and was living at home with 24 hr help at the home. 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 no children nor significant other. She does have a brother who is POA. Substance History: none reported Trauma History: none reported Diagnostics Vital Signs (24Hr): Vital Signs - 24 hr 03/05/25 20:00 Temperature 98.7 F Pulse Rate 84 Respiratory Rate 17 Blood Pressure 164/58 H Pulse Oximetry 96 Oxygen Delivery Method Room Air Meds/Allergies Meds Home Medications Medication Instructions Recorded Confirmed Type Seroquel 50 mg PO BID 03/05/25 03/05/25 History atorvastatin 20 mg tablet 20 mg PO DAILY 03/05/25 03/05/25 History cholecalciferol (vitamin D3) 1,000 unit PO DAILY 03/05/25 03/05/25 History citalopram 20 mg tablet 20 mg PO DAILY 03/05/25 03/05/25 History donepezil 5 mg PO BEDTIME 03/05/25 03/05/25 History melatonin 3 mg tablet 3 mg PO QPM 03/05/25 03/05/25 History risperidone 0.25 mg tablet 0.25 mg PO DAILY 03/05/25 03/05/25 History trazodone 50 mg tablet 50 mg PO BEDTIME 03/05/25 03/05/25 History Colace 100 mg PO BID 03/06/25 03/06/25 History nitrofurantoin 100 mg PO BID 03/06/25 03/06/25 History Allergies Allergies Allergy/AdvReac Type Severity Reaction Status Date / Time Cephalosporins Allergy Intermediate Hives Verified 03/05/25 19:23 aspirin Allergy Unknown Verified 03/05/25 19:23 benzocaine Allergy Unknown Verified 03/05/25 19:23 rosuvastatin Allergy Unknown Verified 03/05/25 19:24 codeine AdvReac Intermediate altered Verified 03/05/25 19:23 Mental Status lactose AdvReac intolerance Verified 03/05/25 19:24 chickpeas Allergy Intermediate Hives Uncoded 03/05/25 19:23 Mental Status Exam Mental Status Exam Narrative: Appearance: wearing hospital gown, fair hygiene, in NAD Behavior: calm, not engaging much in conversation, walking away Psychomotor: no agitation or retardation noted Speech: with expressive aphasia TP: aphasia TC: none in particular Mood: good Affect: congruent SI: no signs HI: no signs VH/AH: no overt signs Delusions: no overt delusional content Insight/judgment: severely impaired x 2. Memory/cog: oriented only to self. severe memory/cog impairments. Assessment & Plan Assessment & Plan (1) Major neurocognitive disorder due to another medical condition with behavioral disturbance: Status: Acute Code(s): F02.818 - Dementia in other diseases classified elsewhere, unspecified severity, with other behavioral disturbance Plan Mr. Abdi is a 79 year-old woman with hx of AD who was sent from memory unit from [facility] to [facility] ED due to pt pushing staff when being redirected out of peer's room. Pertinent labs include CBC without leukocytosis nor anemia, CMP without electrolyte abnormalities. UA with nites and leukocytes but no bacteria. Pt oriented only to self, with severe impairment in memory and ability to retain information along with expressive aphasia. She was started on risperidone at [facility]. It appears she was on seroquel prior to going to the hospital. Will switch to risperidone. Continue aricept. PLAN 1. Admit to S1, on 12b, pending POA invokation. 2. d/c seroquel increase risperidone to 0.5mg po BID. Continue olanzapine 2.5mg po TID prn for agitation. 3. obtain collateral information 4. aftercare planning. Patient educated on: diagnosis (brother, pt does not understand) and medication risk/benefits Reason for continued inpatient stay Substantial Risk for: harm to others and inability to function Statement Statement: I have reviewed the history and physical and performed a pertinent examination on my patient. No changes have occurred unless specified. If the History and Physical was not performed prior to admission, the Hospitalist's service will be consulted for completing the admission physical. Time Spent With Patient Time: Total time managing care of this patient today ____ minutes. Dictated By: Taryn Arshad NP Signed By: <Electronically signed by Taryn Arshad> 03/07/25 1206 <Electronically signed by Chapin Jacobsen MD> 07/30/25 2231 <Electronically signed by Chapin Jacobsen MD> 03/07/252230 DD/ 8 TD/TT: 03/06/25928 HOSPITAL COURSE Patient was admitted on a section 12 B she has significant dementia was oriented only to name not place purpose difficulty processing information The patient had been on Seroquel prior to admission this was changed to Risperdal own for significant agitation particularly with care.. The patient was change to CV by healthcare proxy. She was treated for a UTI early in the hospitalization. Patient gradually was introduced to Risperdal escitalopram was continued Aricept continued the patient was gradually titrated on Risperdal. Eventually she became more cooperative with socialization on the unit became less reactive during mealtime no patient patient aggression. Had difficulty at times with ADLs and with toileting. Patient was accepted back to assisted living and discharged on 03/22/2025 Status at Discharge Cognitive/behavioral status at discharge: Patient perplexed flat response to name simple cuing not oriented to place situation Functional status at discharge: independent ambulation Time Spent with Patient Time attestation: Total time managing care of this patient today _35___ minutes. Discharge Plan Discharge Anticipated Discharge Date/Time: 03/22/25 11:00 Patient Disposition: Xfer Other Discharge Diagnosis: Alzheimer's dementia with behavioral problems hyperlipedemia Referrals: [facility] [Other] - 03/22/25 11:00 am Referral Note: You will be returning back to [facility] on 03/22 at 11:00Am. Your brother has been informed and will reach out once your home. Discharge Medications: New risperidone 0.5 mg Tablet 0.5 mg PO TID 30 Days Qty: 90 1RF cholecalciferol (vitamin D3) 25 mcg (1,000 unit) Tablet 25 mcg PO DAILY 30 Days Qty: 30 1RF donepezil 5 mg Tablet 5 mg PO BEDTIME 30 Days Qty: 30 1RF docusate sodium [Colace] 100 mg capsule 100 mg PO BID 30 Days Qty: 60 1RF Continued atorvastatin 20 mg tablet 20 mg PO DAILY 30 Days Qty: 30 1RF trazodone 50 mg tablet 50 mg PO BEDTIME 30 Days Qty: 30 1RF melatonin 3 mg tablet 3 mg PO QPM 30 Days Qty: 30 1RF donepezil 5 mg PO BEDTIME 30 Days Qty: 30 1RF citalopram 20 mg tablet 20 mg PO DAILY 30 Days Qty: 30 1RF Discontinued risperidone 0.25 mg tablet 0.25 mg PO DAILY Seroquel 50 mg PO BID cholecalciferol (vitamin D3) 1,000 unit PO DAILY Colace 100 mg PO BID nitrofurantoin 100 mg PO BID Discharge Orders: Discharge Order (Routine); Ordered 03/22/25 Ordered By: Chapin Jacobsen Diet: Advance to usual diet Activity on Discharge: As tolerated Stand Alone Forms: Patient Portal Discharge page Print Language: Armenian Care Plan Goals: stabilize aggressive behaviors maintain adl fx and nutrition with assistance Health Concerns: dementia hyperlipidemia Plan of Treatment: locked asstd living assistance for adl risperidone citalopram donepezil needs frequent toileting Assessment: pt at baseline confused oriented to person some anxiety not aggressive Discharge Date/Time: 03/22/25 11:04
== END 2025-03-22 11:04 | disposition other institution (70) | DRG 57 ==
PROVIDERS: Nurse Practitioner Family; Physician Assistant; Psychiatry & Neurology Psychiatry; Admitting Provider Psychiatry & Neurology Psychiatry; Visit Provider Psychiatry & Neurology Psychiatry
DX: G30.9 Alzheimer's disease, unspecified (principal); F02.811 Dementia in other diseases classified elsewhere, unspecified severity, with agitation; N39.0 Urinary tract infection, site not specified; R47.01 Aphasia; E78.5 Hyperlipidemia, unspecified; Z20.822 Contact with and (suspected) exposure to COVID-19; Z79.899 Other long term (current) drug therapy
CPT/HCPCS: 36415; 80053; 80061; 81001; 83036; 83605; 84443; 85025; 87040; 87086; 87637; 87651

== ENCOUNTER → 2025-03-05 19:33 | Outpatient (BNV) | payer OTHER, MEDICARE, SELFPAY | PROVIDERS: Admitting Provider Psychiatry & Neurology Psychiatry; Visit Provider Social Worker | DX: F03.918 Unspecified dementia, unspecified severity, with other behavioral disturbance (principal) | CPT/HCPCS: 90792; 99231; 99232 ==

== ENCOUNTER → 2025-03-05 19:33 | Outpatient (BNV) | payer OTHER, MEDICARE, SELFPAY | PROVIDERS: Admitting Provider Psychiatry & Neurology Psychiatry; Visit Provider Psychiatry & Neurology Psychiatry | DX: F02.818 Dementia in other diseases classified elsewhere, unspecified severity, with other behavioral disturbance (principal) | CPT/HCPCS: 99231; 99232; 99238 ==

== ENCOUNTER → 2025-03-05 19:33 | Outpatient (BNV) | payer OTHER, MEDICARE, SELFPAY | PROVIDERS: Admitting Provider Psychiatry & Neurology Psychiatry; Visit Provider Student in an Organized Health Care Education/Training Program | DX: Z00.8 Encounter for other general examination (principal) | CPT/HCPCS: 99222; 99499 ==